=== PATIENT | male | born 1960 | race Caucasian/White ===

== ENCOUNTER 2016-08-14 04:05 | Emergency (ER) | payer BC, OTHER ==
[2016-08-14 04:18] VITALS: RESP 18
[2016-08-14] MEDS ORDERED: DICYCLOMINE 20 MG TAB PO STA (05:00)
--- NOTE | 2016-08-14 05:00 | ED ---
Abdominal Pain HPI - General Chief Complaint: Abdominal Pain Stated Complaint: abd pain Time Seen by Provider: 08/14/16 04:19 Source: patient Mode of arrival: ambulatory Limitations: no limitations - History of Present Illness Initial Comments: This patient is 56-year-old man who presents to be evaluated for abdominal cramping that has been going on since Sunday morning. He indicates the periumbilical area. He states that the pain is been pre-much constant and moderate intensity although seems to be getting worse over the past 4-5 hours. Patient notes that prior to the onset the pain on Sunday he had taken a Dulcolax as he thought he was constipated. Patient reports having a large bowel movement. There was no blood. The following morning he developed the cramping. MD Complaint: abdominal pain Onset/Timin -: hour(s) Location: periumbilical Radiation: none Migration to: no migration Severity: moderate Quality: cramping Consistency: constant Improves With: nothing Worsens With: nothing Associated Symptoms: denies other symptoms - Related Data Previous Rx's Medication Instructions Recorded Azithromycin [Zithromax Z-pack] 0 mg PO DIRECTED #6 tab 06/20/15 Fluticasone Propionate [Flonase 1 - 2 spray EA NOSTRIL DAILY 5 Days 06/20/15 Allergy Relief] Dicyclomine [Bentyl] 20 mg PO QID #15 tablet 08/14/16 Allergies Allergy/AdvReac Type Severity Reaction Status Date / Time amoxicillin Allergy Rash/Hives Verified 08/14/16 04:18 Review of Systems ROS Statement: Those systems with pertinent positive or pertinent negative responses have been documented in the HPI. ROS Other: All systems not noted in ROS Statement are negative. Constitutional: Denies: fever, chills Respiratory: Denies: cough, dyspnea Cardiovascular: Denies: chest pain, palpitations, orthopnea, edema Gastrointestinal: Reports: abdominal pain, constipation. Denies: nausea, vomiting, diarrhea, melena, hematochezia Genitourinary: Denies: dysuria, hematuria, testicular pain, testicular mass Musculoskeletal: Denies: back pain Skin: Denies: rash Neurological: Denies: headache Past Medical History Past Medical History: Diabetes Mellitus, GERD/Reflux, Myocardial Infarction ([place]) Additional Past Medical History / Comment(s): [place] 2010 History of Any Multi-Drug Resistant Organisms: None Reported Past Surgical History: Heart Catheterization With Stent, Hernia Repair, Orthopedic Surgery Additional Past Surgical History / Comment(s): royal knee, lt hand, stent placed 2011 LAD, hernia Past Psychological History: Anxiety Smoking Status: Former smoker Past Alcohol Use History: Occasional Past Drug Use History: None Reported General Exam Limitations: no limitations General appearance: alert, in no apparent distress Head exam: Present: atraumatic, normocephalic Eye exam: Present: normal appearance. Absent: scleral icterus, conjunctival injection ENT exam: Present: normal oropharynx Neck exam: Present: normal inspection, full ROM Respiratory exam: Present: normal lung sounds bilaterally. Absent: respiratory distress, wheezes, rales, rhonchi, stridor Cardiovascular Exam: Present: regular rate, normal rhythm, normal heart sounds. Absent: systolic murmur, diastolic murmur, rubs, gallop GI/Abdominal exam: Present: soft, tenderness (Left lower quadrant with mild tenderness but no rebound or guarding), normal bowel sounds. Absent: distended , guarding, rebound, rigid, mass, pulsatile mass Extremities exam: Present: normal inspection, normal capillary refill. Absent: pedal edema, calf tenderness Back exam: Present: normal inspection. Absent: CVA tenderness (R), CVA tenderness (L) Neurological exam: Present: alert Skin exam: Present: warm, dry, intact, normal color. Absent: rash Course Vital Signs 08/14/16 04:13 Temperature 97.3 F L Pulse Rate 78 Respiratory 18 Rate Blood Pressure 123/85 O2 Sat by Pulse 100 Oximetry Medical Decision Making - Medical Decision Making Patient reevaluated following studies and medication. His symptoms have resolved. I discussed with the patient signs and symptoms of hernia, obstruction, and other abdominal emergencies. At this point patient is not having any symptoms and would follow up with surgeon as outpatient. I did again emphasize to return should the symptoms recur or any new symptoms develop. Patient understands that hernia was strength relation or obstruction can be life-threatening, will return if symptoms recur. - Lab Data Result diagrams: 08/14/16 04:45 08/14/16 04:45 Lab Results 08/14/16 08/14/16 08/14/16 Range/Units 04:45 04:45 04:45 WBC 6.2 (3.8-10.6) k/uL RBC 4.69 (4.30-5.90) m/uL Hgb 14.6 (13.0-17.5) gm/dL Hct 43.4 (39.0-53.0) % MCV 92.5 (80.0-100.0) fL MCH 31.1 (25.0-35.0) pg MCHC 33.7 (31.0-37.0) g/dL RDW 13.1 (11.5-15.5) % Plt Count 225 (150-450) k/uL Neutrophils % 57 % Lymphocytes % 28 % Monocytes % 6 % Eosinophils % 5 % Basophils % 1 % Neutrophils # 3.6 (1.3-7.7) k/uL Lymphocytes # 1.7 (1.0-4.8) k/uL Monocytes # 0.4 (0-1.0) k/uL Eosinophils # 0.3 (0-0.7) k/uL Basophils # 0.1 (0-0.2) k/uL Sodium 138 (137-145) mmol/L Potassium 4.3 (3.5-5.1) mmol/L Chloride 101 (98-107) mmol/L Carbon Dioxide 29 (22-30) mmol/L Anion Gap 8 mmol/L BUN 20 (9-20) mg/dL Creatinine 1.05 (0.66-1.25) mg/dL Est GFR (MDRD) Af Amer >60 (>60 ml/min/1.73 sqM) Est GFR (MDRD) Non-Af >60 (>60 ml/min/1.73 sqM) Glucose 98 (74-99) mg/dL Calcium 10.0 (8.4-10.2) mg/dL Total Bilirubin 0.8 (0.2-1.3) mg/dL AST 18 (17-59) U/L ALT 27 (21-72) U/L Alkaline Phosphatase 50 (38-126) U/L Total Protein 5.9 L (6.3-8.2) g/dL Albumin 3.4 L (3.5-5.0) g/dL Amylase 82 (30-110) U/L Lipase 42 (23-300) U/L Urine Color Colorless Urine Appearance Clear (Clear) Urine pH 5.0 (5.0-8.0) Ur Specific [place] 1.003 (1.001-1.035) Urine Protein Negative (Negative) Urine Glucose (UA) Negative (Negative) Urine Ketones Negative (Negative) Urine Blood Negative (Negative) Urine Nitrite Negative (Negative) Urine Bilirubin Negative (Negative) Urine Urobilinogen <2.0 (<2.0) mg/dL Ur Leukocyte Esterase Negative (Negative) Disposition Clinical Impression: Abdominal pain Disposition: HOME SELF-CARE Condition: Good Instructions: Abdominal Pain (ED) Prescriptions: Dicyclomine [Bentyl] 20 mg PO QID #15 tablet Referrals: None,Stated [Primary Care Provider] - 1-2 days Ania Shields DO [Doctor of Osteopathic Medicine] - 1-2 days
[2016-08-14 05:15] LABS: Basophils # (A) 0.1 k/uL (0-0.2); Basophils % (A) 1 %; CH 30.5; CHCM 33.1; Eosinophils # (A) 0.3 k/uL (0-0.7); Eosinophils % (A) 5 %; HCT 43.4 % (39.0-53.0); HDW 2.45; HGB 14.6 gm/dL (13.0-17.5); Luc # (Auto) 0.12; Luc % (Auto) 2; Lymphocytes # (A) 1.7 k/uL (1.0-4.8); Lymphocytes % (A) 28 %; MCH 31.1 pg (25.0-35.0); MCHC 33.7 g/dL (31.0-37.0); MCV 92.5 fL (80.0-100.0); Mean Platelet Volume 7.3; Monocytes # (A) 0.4 k/uL (0-1.0); Monocytes % (A) 6 %; Neutrophils # (A) 3.6 k/uL (1.3-7.7); Neutrophils % (A) 57 %; RBC 4.69 m/uL (4.30-5.90); RDW 13.1 % (11.5-15.5); WBC 6.2 k/uL (3.8-10.6); WBC (Perox) 6.27
[2016-08-14 05:18] LABS: Appearance,Urine Clear (Clear); Bilirubin,Urine Negative (Negative); Glucose,Urine (UA) Negative (Negative); Ketones,Urine Negative (Negative); Leukocyte Esterase,Urine Negative (Negative); Nitrite,Urine Negative (Negative); Protein,Urine Negative (Negative); Specific Gravity,Urine 1.003 (1.001-1.035); UA Billing (MACRO vs. MICRO) CHEM; Urobilinogen,Urine <2.0 mg/dL (<2.0)
[2016-08-14 05:32] LABS: ALT 27 U/L (21-72); AST 18 U/L (17-59); Alkaline Phosphatase 50 U/L (38-126); Amylase 82 U/L (30-110); Anion Gap 8 mmol/L; Blood Urea Nitrogen 20 mg/dL (9-20); Carbon Dioxide 29 mmol/L (22-30); Chloride 101 mmol/L (98-107); Glucose 98 mg/dL (74-99); Non-African American GFR(MDRD) >60 (>60 ml/min/1.73 sqM); Potassium 4.3 mmol/L (3.5-5.1); Sodium 138 mmol/L (137-145); Total Bilirubin 0.8 mg/dL (0.2-1.3); Total Protein 5.9 g/dL (6.3-8.2)
--- NOTE | 2016-08-14 06:06 | CT ---
EXAM: CT Abdomen and Pelvis Without Intravenous Contrast. CLINICAL HISTORY: Abdominal cramping TECHNIQUE: Axial computed tomography images of the abdomen and pelvis without intravenous contrast. CTDI is 11.47 mGy and DLP is 580 mGy-cm This CT exam was performed using one or more of the following dose reduction techniques: automated exposure control, adjustment of the mA and/or kV according to patient size, and/or use of iterative reconstruction technique. Coronal and sagittal reformatted images were created and reviewed. COMPARISON: No relevant prior studies available. FINDINGS: Lower thorax: No acute findings. ABDOMEN: Liver: Unremarkable. Gallbladder and bile ducts: Unremarkable. No calcified stones. No ductal dilation. Pancreas: Unremarkable. No ductal dilation. Spleen: Unremarkable. No splenomegaly. Adrenals: Unremarkable. No mass. Kidneys and ureters: Mild left perinephric stranding. No obstructing stones. No hydronephrosis. Stomach and bowel: Moderate stool in colon. Small bowel located lateral to the left colon, may be a nonobstructive internal hernia. No bowel obstruction. No mucosal thickening. Appendix: No findings to suggest acute appendicitis. PELVIS: Bladder: Unremarkable. No stones. Reproductive: Unremarkable as visualized. ABDOMEN and PELVIS: Intraperitoneal space: Trace free fluid. No free air. No significant fluid collection. Bones/joints: Mild L5-S1 degenerative changes. No acute fracture. No dislocation. Soft tissues: Unremarkable. Vasculature: Unremarkable. No abdominal aortic aneurysm. Lymph nodes: Small mesenteric lymph nodes. IMPRESSION: Small bowel located lateral to the left colon, may be a nonobstructive internal hernia. Moderate stool in colon. No bowel obstruction. Minimal left perinephric stranding may be senescent, correlate for infection. No obstructive uropathy.
[2016-08-14 07:05] VITALS: BP 106/56; PULSE 58; TEMP 97.7
== END 2016-08-14 07:04 | disposition home or self-care (01) ==
LOC: EC 04:05
DX: R10.33 Periumbilical pain (principal); R10.32 Left lower quadrant pain; Z87.891 Personal history of nicotine dependence; Z88.0 Allergy status to penicillin
CPT/HCPCS: 36415; 74176; 80053; 81003; 82150; 83690; 85025; 99284

== ENCOUNTER 2016-09-17 19:41 | Emergency (ER) | payer OTHER ==
[2016-09-17] MEDS ORDERED: KETOROLAC 30 MG/ML 1 ML VIAL IVP STA (21:45)
[2016-09-17] MEDS ORDERED: ASPIRIN 325 MG TAB PO STA (21:45)
[2016-09-17 22:54] LABS: Basophils # (A) 0.1 k/uL (0-0.2); Basophils % (A) 1 %; CH 31.2; CHCM 33.1; Eosinophils # (A) 0.7 k/uL (0-0.7); Eosinophils % (A) 8 %; HCT 39.6 % (39.0-53.0); HDW 2.25; HGB 13.1 gm/dL (13.0-17.5); Luc # (Auto) 0.22; Luc % (Auto) 2; Lymphocytes % (A) 21 %; MCH 31.4 pg (25.0-35.0); MCHC 33.1 g/dL (31.0-37.0); MCV 94.8 fL (80.0-100.0); Mean Platelet Volume 7.1; Monocytes # (A) 0.6 k/uL (0-1.0); Monocytes % (A) 6 %; Neutrophils # (A) 5.8 k/uL (1.3-7.7); Neutrophils % (A) 62 %; RBC 4.17 m/uL (4.30-5.90); RDW 13.4 % (11.5-15.5); WBC 9.4 k/uL (3.8-10.6); WBC (Perox) 10.09
[2016-09-17 23:06] LABS: Anion Gap 9 mmol/L; Blood Urea Nitrogen 18 mg/dL (9-20); Calcium 9.1 mg/dL (8.4-10.2); Carbon Dioxide 23 mmol/L (22-30); Chloride 107 mmol/L (98-107); Glucose 106 mg/dL (74-99); Non-African American GFR(MDRD) >60 (>60 ml/min/1.73 sqM); Potassium 4.6 mmol/L (3.5-5.1); Sodium 139 mmol/L (137-145)
--- NOTE | 2016-09-17 23:10 | XR ---
EXAM: XR Chest, 2 Views CLINICAL HISTORY: Reason: LE swelling TECHNIQUE: Frontal and lateral views of the chest. COMPARISON: CXR 06/20/15 FINDINGS: Lungs: Unremarkable. No consolidation. Pleural space: Unremarkable. No pneumothorax. Heart: Unremarkable. No cardiomegaly. Mediastinum: Unremarkable. Bones/joints: Mild S-shaped scoliosis of the spine with multilevel degenerative changes. IMPRESSION: No acute findings.
[2016-09-17 23:26] VITALS: BP 121/75; PULSE 64; RESP 18; TEMP 98
--- NOTE | 2016-09-18 | ED ---
General Adult HPI - General Chief complaint: Extremity Problem,Nontraumatic Stated complaint: Swollen legs Source: patient Mode of arrival: ambulatory Limitations: no limitations - History of Present Illness Initial comments: 56-year-old male presented for evaluation of lower extremity edema. He states is been ongoing for the last 2 days. He did recently start a new job 3 days ago and has been more active on his feetthan usual. He denies any associated shortness breath, chest pain, fevers, chills, nausea, vomiting, dyspnea with exertion.however he does have a past medical history of coronary stenting in 2010 at admits to having a little bit of tenderness and the feet. - Related Data Home Medications Medication Instructions Recorded Confirmed D-Methorphan/Acetamin/Doxylamn 1 cap PO Q6H PRN 09/17/16 09/17/16 [Vicks Nyquil Liquicaps] Docusate [Colace] 100 mg PO DAILY PRN 09/17/16 09/17/16 Guaifen/Phenyleph/Acetaminophn 1 tab PO Q6H PRN 09/17/16 09/17/16 [Tylenol Sinus Severe Caplet] HYDROcodone/APAP 10-325MG [[place] 1 tab PO ONCE PRN 09/17/16 09/17/16 10-325] Allergies Allergy/AdvReac Type Severity Reaction Status Date / Time amoxicillin Allergy Rash/Hives Verified 09/17/16 20:52 STEROIDS Allergy "FEELS Uncoded 09/17/16 20:52 WIERD" Review of Systems ROS Statement: Those systems with pertinent positive or pertinent negative responses have been documented in the HPI. ROS Other: All systems not noted in ROS Statement are negative. Constitutional: Denies: fever, chills, weakness Eyes: Denies: eye pain, eye discharge, vision change ENT: Denies: ear pain, throat pain Respiratory: Denies: cough, dyspnea, wheezes, hemoptysis, stridor Cardiovascular: Reports: edema (bilateral lower extremity). Denies: chest pain , palpitations, dyspnea on exertion, orthopnea, syncope, paroxysmal nocturnal dyspnea Endocrine: Denies: fatigue, polydipsia, polyuria Gastrointestinal: Denies: abdominal pain, nausea, vomiting Genitourinary: Denies: urgency, dysuria, frequency Musculoskeletal: Denies: back pain, arthralgia, myalgia Skin: Denies: rash, lesions Neurological: Denies: headache, weakness, numbness, paresthesias Past Medical History Past Medical History: Diabetes Mellitus, GERD/Reflux, Myocardial Infarction ([place]) Additional Past Medical History / Comment(s): [place] 2010 History of Any Multi-Drug Resistant Organisms: None Reported Past Surgical History: Heart Catheterization With Stent, Hernia Repair, Orthopedic Surgery Additional Past Surgical History / Comment(s): royal knee, lt hand, stent placed 2010 LAD, hernia Past Psychological History: Anxiety Smoking Status: Former smoker Past Alcohol Use History: Occasional Past Drug Use History: None Reported General Exam Limitations: no limitations General appearance: alert, in no apparent distress Head exam: Present: atraumatic, normocephalic, normal inspection Eye exam: Present: normal appearance, PERRL, EOMI. Absent: scleral icterus, conjunctival injection, periorbital swelling ENT exam: Present: normal exam, mucous membranes moist Neck exam: Present: normal inspection. Absent: tenderness, meningismus, lymphadenopathy Respiratory exam: Present: normal lung sounds bilaterally. Absent: respiratory distress, wheezes, rales, rhonchi, stridor Cardiovascular Exam: Present: regular rate, normal rhythm, normal heart sounds. Absent: systolic murmur, diastolic murmur, rubs, gallop, clicks GI/Abdominal exam: Present: soft, normal bowel sounds. Absent: distended, tenderness, guarding, rebound, rigid Rectal exam: Present: deferred Extremities exam: Present: full ROM, normal capillary refill, pedal edema ( bilateral 1+ lower extremity edema with intact pulses bilaterally at the dorsalis pedis and the femoral arteries). Absent: tenderness, joint swelling, calf tenderness Back exam: Present: normal inspection Neurological exam: Present: alert, oriented X3, CN II-XII intact Psychiatric exam: Present: normal affect, normal mood Skin exam: Present: warm, dry, intact, normal color. Absent: rash Course Vital Signs 09/17/16 09/17/16 20:14 23:24 Temperature 98.2 F 98 F Pulse Rate 56 L 64 Respiratory 20 18 Rate Blood Pressure 136/78 121/75 O2 Sat by Pulse 97 100 Oximetry EKG Findings - EKG Comments: EKG Findings:: sinus rhythm with premature supraventricular complexes and a ventricular rate of 76, ANIBAL 168, QRS 90, QT/QTC 366/411. Medical Decision Making - Medical Decision Making 56-year-old male presented for evaluation bilateral lower extremity edema for the past couple days. He does state that a few days ago he started a new job and has been markedly more active on his feet with lots of walking at the new job site. On physical examination he has 1+ edema on the bilateral lower extremities but the remainder of his physical exam is benign. He has intact dorsalis pedis pulses and femoral artery pulses bilaterally. Lungs are clear to auscultation bilaterally without wheezes, rales, or rhonchi. Heart exam reveals no murmurs rubs or gallops.labs revealed no significant abnormalities and chest x-ray showed no acute process. The patient was reevaluated and stated he was feeling well. He was advised follow-up with his primary care physician but to return to this facility for symptoms should worsen or persist. The patient acknowledged an understanding of this information and agreed with this plan of care. - Lab Data Result diagrams: 09/17/16 22:40 09/17/16 22:40 Lab Results 09/17/16 09/17/16 09/17/16 Range/Units 22:40 22:40 22:40 WBC 9.4 (3.8-10.6) k/uL RBC 4.17 L (4.30-5.90) m/uL Hgb 13.1 (13.0-17.5) gm/dL Hct 39.6 (39.0-53.0) % MCV 94.8 (80.0-100.0) fL MCH 31.4 (25.0-35.0) pg MCHC 33.1 (31.0-37.0) g/dL RDW 13.4 (11.5-15.5) % Plt Count 199 (150-450) k/uL Neutrophils % 62 % Lymphocytes % 21 % Monocytes % 6 % Eosinophils % 8 % Basophils % 1 % Neutrophils # 5.8 (1.3-7.7) k/uL Lymphocytes # 2.0 (1.0-4.8) k/uL Monocytes # 0.6 (0-1.0) k/uL Eosinophils # 0.7 (0-0.7) k/uL Basophils # 0.1 (0-0.2) k/uL Sodium 139 (137-145) mmol/L Potassium 4.6 (3.5-5.1) mmol/L Chloride 107 (98-107) mmol/L Carbon Dioxide 23 (22-30) mmol/L Anion Gap 9 mmol/L BUN 18 (9-20) mg/dL Creatinine 1.20 (0.66-1.25) mg/dL Est GFR (MDRD) Af Amer >60 (>60 ml/min/1.73 sqM) Est GFR (MDRD) Non-Af >60 (>60 ml/min/1.73 sqM) Glucose 106 H (74-99) mg/dL Calcium 9.1 (8.4-10.2) mg/dL Troponin I (0.000-0.034) ng/mL NT-Pro-B Natriuret Pep 243 pg/mL 09/17/16 Range/Units 22:40 WBC (3.8-10.6) k/uL RBC (4.30-5.90) m/uL Hgb (13.0-17.5) gm/dL Hct (39.0-53.0) % MCV (80.0-100.0) fL MCH (25.0-35.0) pg MCHC (31.0-37.0) g/dL RDW (11.5-15.5) % Plt Count (150-450) k/uL Neutrophils % % Lymphocytes % % Monocytes % % Eosinophils % % Basophils % % Neutrophils # (1.3-7.7) k/uL Lymphocytes # (1.0-4.8) k/uL Monocytes # (0-1.0) k/uL Eosinophils # (0-0.7) k/uL Basophils # (0-0.2) k/uL Sodium (137-145) mmol/L Potassium (3.5-5.1) mmol/L Chloride (98-107) mmol/L Carbon Dioxide (22-30) mmol/L Anion Gap mmol/L BUN (9-20) mg/dL Creatinine (0.66-1.25) mg/dL Est GFR (MDRD) Af Amer (>60 ml/min/1.73 sqM) Est GFR (MDRD) Non-Af (>60 ml/min/1.73 sqM) Glucose (74-99) mg/dL Calcium (8.4-10.2) mg/dL Troponin I <0.012 (0.000-0.034) ng/mL NT-Pro-B Natriuret Pep pg/mL Disposition Clinical Impression: Lower extremity edema Disposition: HOME SELF-CARE Condition: Stable Instructions: Edema (ED), Leg Edema (ED) Referrals: None,Stated [Primary Care Provider] - 1-2 days Esha Chand MD [STAFF PHYSICIAN] - 1-2 days Time of Disposition: 23:59
== END 2016-09-18 00:12 | disposition home or self-care (01) ==
LOC: EC 19:41
DX: R60.0 Localized edema (principal); Z87.891 Personal history of nicotine dependence; Z88.0 Allergy status to penicillin; Z88.8 Allergy status to other drugs, medicaments and biological substances
CPT/HCPCS: 99284; 96374; 36415; 93005; 83880; 80048; 84484; 85025; 71020; J1885

== ENCOUNTER 2017-07-16 05:59 | Emergency (ER) | payer OTHER ==
[2017-07-16] MEDS ORDERED: SODIUM CHLORIDE 0.9% 1,000 ML IV STA (06:18)
[2017-07-16] MEDS ORDERED: MORPHINE SULFATE 4 MG/ML SYRINGE IV STA (06:18)
[2017-07-16] MEDS ORDERED: RX INFO: IV CONTRAST WAS GIVEN 1 EACH MISC MISCELLANE PRN (06:19)
--- NOTE | 2017-07-16 06:20 | ED ---
General Adult HPI - General Source: patient, RN notes reviewed, old records reviewed Mode of arrival: ambulatory Limitations: no limitations <Dru Lin - Last Filed: 07/16/17 06:19> <Tee Jaramillo - Last Filed: 07/16/17 08:43> - General Chief complaint: Back Pain/Injury Stated complaint: back pain Time Seen by Provider: 07/16/17 06:15 - History of Present Illness Initial comments: This is a 49-year-old male to the ER for evaluation. She is presenting for evaluation of significant right onset flank pain. Son nonsedative flank pain yesterday shows episodic progressively worsening. Patient's no prior history of similar pain history of kidney stones history of trauma. No nausea vomiting or diarrhea no fevers. Patient states pain increased overnight, increased flatus sleeping causing him to be diaphoretic and in significant pain. Patient tried Motrin with no help (Dru Lin) - Related Data Home Medications Medication Instructions Recorded Confirmed HYDROcodone/APAP 10-325MG [[place] 1 tab PO DAILY PRN 09/17/16 07/16/17 10-325] Ibuprofen [Motrin] 800 mg PO Q6H PRN 07/16/17 07/16/17 Allergies Allergy/AdvReac Type Severity Reaction Status Date / Time amoxicillin Allergy Rash/Hives Verified 07/16/17 08:19 STEROIDS Allergy "FEELS Uncoded 07/16/17 06:06 WIERD" Review of Systems ROS Other: All systems not noted in ROS Statement are negative. <Dru Lin - Last Filed: 07/16/17 06:19> ROS Other: All systems not noted in ROS Statement are negative. <Tee Jaramillo - Last Filed: 07/16/17 08:43> ROS Statement: Those systems with pertinent positive or pertinent negative responses have been documented in the HPI. Past Medical History Past Medical History: Diabetes Mellitus, GERD/Reflux, Myocardial Infarction ([place]) Additional Past Medical History / Comment(s): [place] 2010, History of Any Multi-Drug Resistant Organisms: None Reported Past Surgical History: Heart Catheterization With Stent, Hernia Repair, Orthopedic Surgery Additional Past Surgical History / Comment(s): royal knee, lt hand, stent placed 2010 LAD, hernia, Past Psychological History: Anxiety Smoking Status: Current every day smoker Past Alcohol Use History: Occasional Past Drug Use History: None Reported <Dru Lin - Last Filed: 07/16/17 06:19> General Exam Limitations: no limitations General appearance: alert, in no apparent distress Head exam: Present: atraumatic, normocephalic, normal inspection Eye exam: Present: normal appearance, PERRL, EOMI. Absent: scleral icterus, conjunctival injection, periorbital swelling ENT exam: Present: normal exam, mucous membranes moist Neck exam: Present: normal inspection. Absent: tenderness, meningismus, lymphadenopathy Respiratory exam: Present: normal lung sounds bilaterally. Absent: respiratory distress, wheezes, rales, rhonchi, stridor Cardiovascular Exam: Present: regular rate, normal rhythm, normal heart sounds. Absent: systolic murmur, diastolic murmur, rubs, gallop, clicks GI/Abdominal exam: Present: soft, normal bowel sounds. Absent: distended, tenderness, guarding, rebound, rigid Extremities exam: Present: normal inspection, full ROM, normal capillary refill. Absent: tenderness, pedal edema, joint swelling, calf tenderness Back exam: Present: normal inspection Neurological exam: Present: alert, oriented X3, CN II-XII intact Psychiatric exam: Present: normal affect, normal mood Skin exam: Present: warm, dry, intact, normal color. Absent: rash <Dru Lin - Last Filed: 07/16/17 06:19> Vital Signs 07/16/17 07/16/17 07/16/17 06:02 07:06 08:00 Temperature 97.9 F 98.3 F Pulse Rate 88 60 86 Respiratory 18 19 16 Rate Blood Pressure 113/70 124/77 115/70 O2 Sat by Pulse 100 97 98 Oximetry Medical Decision Making - Lab Data Result diagrams: 07/16/17 06:20 07/16/17 06:20 <Tee Jaramillo - Last Filed: 07/16/17 08:43> - Lab Data Lab Results 07/16/17 07/16/17 07/16/17 Range/Units 06:20 06:20 06:20 WBC 5.0 (3.8-10.6) k/uL RBC 5.00 (4.30-5.90) m/uL Hgb 15.1 (13.0-17.5) gm/dL Hct 45.2 (39.0-53.0) % MCV 90.4 (80.0-100.0) fL MCH 30.1 (25.0-35.0) pg MCHC 33.3 (31.0-37.0) g/dL RDW 13.1 (11.5-15.5) % Plt Count 175 (150-450) k/uL Neutrophils % 55 % Lymphocytes % 28 % Monocytes % 10 % Eosinophils % 4 % Basophils % 1 % Neutrophils # 2.7 (1.3-7.7) k/uL Lymphocytes # 1.4 (1.0-4.8) k/uL Monocytes # 0.5 (0-1.0) k/uL Eosinophils # 0.2 (0-0.7) k/uL Basophils # 0.1 (0-0.2) k/uL PT (9.0-12.0) sec INR (<1.2) APTT (22.0-30.0) sec Sodium 139 (137-145) mmol/L Potassium 4.4 (3.5-5.1) mmol/L Chloride 105 (98-107) mmol/L Carbon Dioxide 24 (22-30) mmol/L Anion Gap 10 mmol/L BUN 20 (9-20) mg/dL Creatinine 1.00 (0.66-1.25) mg/dL Est GFR (CKD-EPI)AfAm >90 (>60 ml/min/1.73 sqM) Est GFR (CKD-EPI)NonAf 83 (>60 ml/min/1.73 sqM) Glucose 95 (74-99) mg/dL Calcium 9.3 (8.4-10.2) mg/dL Phosphorus 3.5 (2.5-4.5) mg/dL Magnesium 1.7 (1.6-2.3) mg/dL Total Bilirubin 0.5 (0.2-1.3) mg/dL AST 24 (17-59) U/L ALT 30 (21-72) U/L Alkaline Phosphatase 81 (38-126) U/L Total Creatine Kinase 75 (55-170) U/L CK-MB (CK-2) 0.7 (0.0-2.4) ng/mL CK-MB (CK-2) Rel Index 0.9 Troponin I <0.012 (0.000-0.034) ng/mL Total Protein 6.7 (6.3-8.2) g/dL Albumin 3.8 (3.5-5.0) g/dL Urine Color Urine Appearance (Clear) Urine pH (5.0-8.0) Ur Specific [place] (1.001-1.035) Urine Protein (Negative) Urine Glucose (UA) (Negative) Urine Ketones (Negative) Urine Blood (Negative) Urine Nitrite (Negative) Urine Bilirubin (Negative) Urine Urobilinogen (<2.0) mg/dL Ur Leukocyte Esterase (Negative) Urine RBC (0-5) /hpf Urine WBC (0-5) /hpf Amorphous Sediment (None) /hpf Hyaline Casts (0-2) /lpf Urine Mucus (None) /hpf 07/16/17 07/16/17 Range/Units 06:20 06:49 WBC (3.8-10.6) k/uL RBC (4.30-5.90) m/uL Hgb (13.0-17.5) gm/dL Hct (39.0-53.0) % MCV (80.0-100.0) fL MCH (25.0-35.0) pg MCHC (31.0-37.0) g/dL RDW (11.5-15.5) % Plt Count (150-450) k/uL Neutrophils % % Lymphocytes % % Monocytes % % Eosinophils % % Basophils % % Neutrophils # (1.3-7.7) k/uL Lymphocytes # (1.0-4.8) k/uL Monocytes # (0-1.0) k/uL Eosinophils # (0-0.7) k/uL Basophils # (0-0.2) k/uL PT 9.7 (9.0-12.0) sec INR 1.0 (<1.2) APTT 23.4 (22.0-30.0) sec Sodium (137-145) mmol/L Potassium (3.5-5.1) mmol/L Chloride (98-107) mmol/L Carbon Dioxide (22-30) mmol/L Anion Gap mmol/L BUN (9-20) mg/dL Creatinine (0.66-1.25) mg/dL Est GFR (CKD-EPI)AfAm (>60 ml/min/1.73 sqM) Est GFR (CKD-EPI)NonAf (>60 ml/min/1.73 sqM) Glucose (74-99) mg/dL Calcium (8.4-10.2) mg/dL Phosphorus (2.5-4.5) mg/dL Magnesium (1.6-2.3) mg/dL Total Bilirubin (0.2-1.3) mg/dL AST (17-59) U/L ALT (21-72) U/L Alkaline Phosphatase (38-126) U/L Total Creatine Kinase (55-170) U/L CK-MB (CK-2) (0.0-2.4) ng/mL CK-MB (CK-2) Rel Index Troponin I (0.000-0.034) ng/mL Total Protein (6.3-8.2) g/dL Albumin (3.5-5.0) g/dL Urine Color Yellow Urine Appearance Cloudy (Clear) Urine pH 5.0 (5.0-8.0) Ur Specific [place] 1.024 (1.001-1.035) Urine Protein Trace H (Negative) Urine Glucose (UA) Negative (Negative) Urine Ketones Negative (Negative) Urine Blood Trace H (Negative) Urine Nitrite Negative (Negative) Urine Bilirubin Negative (Negative) Urine Urobilinogen <2.0 (<2.0) mg/dL Ur Leukocyte Esterase Negative (Negative) Urine RBC 1 (0-5) /hpf Urine WBC 3 (0-5) /hpf Amorphous Sediment Rare H (None) /hpf Hyaline Casts 5 H (0-2) /lpf Urine Mucus Occasional H (None) /hpf Disposition <Dru Lin - Last Filed: 07/16/17 06:19> Time of Disposition: 08:42 <Tee Jaramillo - Last Filed: 07/16/17 08:43> Clinical Impression: Abdominal pain Disposition: HOME SELF-CARE Condition: Good Instructions: Abdominal Pain (ED) Referrals: None,Stated [Primary Care Provider] - 1-2 days
[2017-07-16 06:44] LABS: Basophils # (A) 0.1 k/uL (0-0.2); Basophils % (A) 1 %; Eosinophils # (A) 0.2 k/uL (0-0.7); Eosinophils % (A) 4 %; HCT 45.2 % (39.0-53.0); HGB 15.1 gm/dL (13.0-17.5); Lymphocytes # (A) 1.4 k/uL (1.0-4.8); Lymphocytes % (A) 28 %; MCH 30.1 pg (25.0-35.0); MCHC 33.3 g/dL (31.0-37.0); MCV 90.4 fL (80.0-100.0); Mean Platelet Volume 7.5; Monocytes # (A) 0.5 k/uL (0-1.0); Monocytes % (A) 10 %; Neutrophils # (A) 2.7 k/uL (1.3-7.7); Neutrophils % (A) 55 %; Platelet Count 175 k/uL (150-450); RDW 13.1 % (11.5-15.5)
[2017-07-16 06:54] LABS: ALT 30 U/L (21-72); AST 24 U/L (17-59); Albumin 3.8 g/dL (3.5-5.0); Alkaline Phosphatase 81 U/L (38-126); Anion Gap 10 mmol/L; Blood Urea Nitrogen 20 mg/dL (9-20); Calcium 9.3 mg/dL (8.4-10.2); Carbon Dioxide 24 mmol/L (22-30); Chloride 105 mmol/L (98-107); Glucose 95 mg/dL (74-99); Magnesium 1.7 mg/dL (1.6-2.3); Phosphorus 3.5 mg/dL (2.5-4.5); Potassium 4.4 mmol/L (3.5-5.1); Sodium 139 mmol/L (137-145); Total Bilirubin 0.5 mg/dL (0.2-1.3); Total Protein 6.7 g/dL (6.3-8.2)
[2017-07-16 06:56] LABS: Partial Thromboplastin Time 23.4 sec (22.0-30.0); Prothrombin Time 9.7 sec (9.0-12.0)
[2017-07-16 07:23] LABS: Amorphous Sediment,Urine Rare /hpf; Appearance,Urine Cloudy (Clear); Bilirubin,Urine Negative (Negative); Blood,Urine Trace (Negative); Color,Urine Yellow; Glucose,Urine (UA) Negative (Negative); Hyaline Casts,Urine 5 /lpf (0-2); Ketones,Urine Negative (Negative); Leukocyte Esterase,Urine Negative (Negative); Mucus,Urine Occasional /hpf; Nitrite,Urine Negative (Negative); Protein,Urine Trace (Negative); RBC,Urine 1 /hpf (0-5); Specific Gravity,Urine 1.024 (1.001-1.035); Urobilinogen,Urine <2.0 mg/dL (<2.0); WBC,Urine 3 /hpf (0-5)
[2017-07-16 07:23] LABS: Creatine Kinase 75 U/L (55-170)
[2017-07-16 07:34] LABS: Creatine Kinase MB 0.7 ng/mL (0.0-2.4); Troponin I <0.012 ng/mL (0.000-0.034)
[2017-07-16] MEDS: HYDROcodone/APAP 5-325MG 1 EACH TAB PO STA ×2 (07:57→08:46)
[2017-07-16 08:02] VITALS: PULSE 86; RESP 16; TEMP 98.3
--- NOTE | 2017-07-16 08:08 | CT ---
EXAMINATION TYPE: CT abdomen pelvis w con DATE OF EXAM: 07/16/2017 COMPARISON: NONE HISTORY: Right flank pain CT DLP: 387.00 mGycm Automated exposure control for dose reduction was used. TECHNIQUE: Helical acquisition of images was performed from the lung bases through the pelvis. CONTRAST: Performed without Oral Contrast and with IV Contrast, patient injected with 100 ml mL of Omnipaque 30 0. FINDINGS: LUNG BASES: Minimal left basilar subsegmental atelectasis is seen. LIVER/GB: Mild intrahepatic biliary ductal dilatation is similar to the prior exam. Gallbladder demon strates no evidence of cholelithiasis. Common bile duct measures 6 mm, within normal limits. PANCREAS: Grossly unremarkable. SPLEEN: No significant abnormality is seen. ADRENALS: Slight thickening of the left adrenal gland is seen without focal nodularity possibly relat ed to underlying adrenal gland hyperplasia. KIDNEYS: Kidneys enhance and excrete symmetrically without hydronephrosis. FREE AIR: No free air is visualized. ADENOPATHY: No greater than 1 cm short axis lymph nodes are seen within the abdomen or pelvis. REPRODUCTIVE ORGANS: No significant abnormality is seen URINARY BLADDER: Urinary bladder displays circumferential wall thickening, possibly due to nondisten tion although correlation with urinalysis is recommended. OSSEOUS STRUCTURES: Mild multilevel degenerative changes of the spine are noted. BOWEL: No evidence of bowel obstruction. Loops of nondilated small bowel are fluid-filled. Moderate amount retained colonic stool is seen throughout. Appendix is not visualized, however there is no rig ht lower quadrant fat stranding. IMPRESSION: 1. MODERATE AMOUNT RETAINED COLONIC STOOL WITH NO EVIDENCE OF BOWEL OBSTRUCTION. COLONIC AND SMALL GLYNN WEL ILEUS IS SUSPECTED WITH NUMEROUS LOOPS OF FLUID-FILLED SMALL BOWEL. 2. CIRCUMFERENTIAL URINARY BLADDER WALL THICKENING AND COULD RELATE TO INCOMPLETE DISTENTION ALTHOUGH CORRELATION WITH URINALYSIS IS RECOMMENDED. NO EVIDENCE OF HYDRONEPHROSIS.
[2017-07-16 09:03] VITALS: BP 130/81
== END 2017-07-16 09:03 | disposition home or self-care (01) ==
LOC: EC 05:59
DX: R10.9 Unspecified abdominal pain (principal); F17.200 Nicotine dependence, unspecified, uncomplicated; Z88.0 Allergy status to penicillin; Z88.8 Allergy status to other drugs, medicaments and biological substances
CPT/HCPCS: 36415; 80053; 82550; 82553; 83735; 84100; 84484; 85025; 85610; 85730; 81001; 74177; 99284; 96374; 96361; J2270; Q9967

== ENCOUNTER 2017-12-07 01:45 | Emergency (ER) | payer OTHER ==
[2017-12-07] MEDS ORDERED: GABAPENTIN 300 MG CAP PO STA (03:02)
--- NOTE | 2017-12-07 03:02 | ED ---
General Adult HPI - General Chief complaint: Recheck/Abnormal Lab/Rx Stated complaint: Withdrawl Time Seen by Provider: 12/07/17 02:41 Source: patient Mode of arrival: ambulatory Limitations: no limitations - History of Present Illness Initial comments: Bradley Martin is a 57-year-old male with a history of opiate abuse who presents the ED today for concern of opiate withdrawal. Patient reports that he has been taking opiate medications for approximately 10-15 years. He states that he usually buys his medications off the street. He does report that a couple weeks ago he tried using Suboxone with an intention of quitting using narcotics , however that did not help. He states that he was not taking narcotics for the past couple of days but he began to feel very restless. He states that yesterday he took 2 [place] but he continues to feel as though he is withdrawing. Patient reports he is withdrawn in the past. He reports that he has restless legs and he feels like his entire body is restless. He reports feeling uncomfortable like he cannot get comfortable. He denies any chest pain, palpitations, shortness of breath or difficulty breathing. The patient states his only concern is that he needs treatment for his restless legs so that he can sleep. He states these been awake for 48 hours trying to herbal but he has been unable to. Patient requested he be given medication here in the ER as he is not certain he'll be able to borrow enough money to have a prescription filled - Related Data Previous Rx's Medication Instructions Recorded Gabapentin [Neurontin] 400 mg PO TID #15 capsule 12/07/17 Allergies Allergy/AdvReac Type Severity Reaction Status Date / Time amoxicillin Allergy Rash/Hives Verified 12/07/17 01:52 STEROIDS Allergy "FEELS Uncoded 12/07/17 01:52 WIERD" Review of Systems ROS Statement: Those systems with pertinent positive or pertinent negative responses have been documented in the HPI. ROS Other: All systems not noted in ROS Statement are negative. Past Medical History Past Medical History: Diabetes Mellitus, GERD/Reflux, Myocardial Infarction ([place]) Additional Past Medical History / Comment(s): [place] 2010, History of Any Multi-Drug Resistant Organisms: None Reported Past Surgical History: Heart Catheterization With Stent, Hernia Repair, Orthopedic Surgery Additional Past Surgical History / Comment(s): royal knee, lt hand, stent placed 2010 LAD, hernia, Past Psychological History: Anxiety Smoking Status: Current every day smoker Past Alcohol Use History: Occasional Past Drug Use History: None Reported General Exam Limitations: no limitations General appearance: alert, in no apparent distress Head exam: Present: atraumatic, normocephalic Eye exam: Present: normal appearance, PERRL ENT exam: Present: normal exam Neck exam: Present: normal inspection Respiratory exam: Present: normal lung sounds bilaterally. Absent: respiratory distress Cardiovascular Exam: Present: regular rate GI/Abdominal exam: Present: soft, normal bowel sounds. Absent: distended Rectal exam: Present: deferred Extremities exam: Present: normal inspection Back exam: Present: normal inspection Neurological exam: Present: alert, oriented X3, normal gait Psychiatric exam: Present: normal affect, normal mood Skin exam: Present: warm, dry Course Vital Signs 12/07/17 12/07/17 01:47 03:28 Temperature 98.1 F 98.0 F Pulse Rate 74 80 Respiratory 16 18 Rate Blood Pressure 131/80 122/75 O2 Sat by Pulse 99 98 Oximetry Medical Decision Making - Medical Decision Making The patient was seen and evaluated, patient with a long history of opiate abuse and withdrawal in the past. Has been trying to stop taking opiates, he developed feeling of restlessness for which she took 2 [place] without improvement. He comes to the ER today asking for treatment of the restlessness. Patient has no abdominal discomfort, diarrhea, chest pain, palpitations. His vital signs are stable. I will treat his restless legs with gabapentin. Patient is uncertain if he'll be able to fill a prescription however I will prescribe him with one At this time the patient has no further complaints Patient was advised to return to the emergency department if he has any acute worsening of his condition. Patient is aware of the of opiate withdrawal as he has been through this multiple times. Disposition Clinical Impression: Opiate withdrawal Disposition: HOME SELF-CARE Condition: Good Instructions: Opioid Withdrawal (ED) Prescriptions: Gabapentin [Neurontin] 400 mg PO TID #15 capsule Is patient prescribed a controlled substance at d/c from ED?: No Referrals: None,Stated [Primary Care Provider] - 1-2 days Time of Disposition: 03:03
[2017-12-07 03:29] VITALS: BP 122/75; PULSE 80; RESP 18; TEMP 98
== END 2017-12-07 03:29 | disposition home or self-care (01) ==
LOC: EC 01:45
DX: F11.23 Opioid dependence with withdrawal (principal); I25.2 Old myocardial infarction; G25.81 Restless legs syndrome; F17.200 Nicotine dependence, unspecified, uncomplicated; Z95.5 Presence of coronary angioplasty implant and graft; Z79.899 Other long term (current) drug therapy; Z88.0 Allergy status to penicillin; Z88.8 Allergy status to other drugs, medicaments and biological substances
CPT/HCPCS: 99283

== ENCOUNTER 2018-05-03 13:16 | Emergency (ER) | payer OTHER ==
--- NOTE | 2018-05-03 13:48 | ED ---
General Adult HPI - General Chief complaint: Arrhythmia/Palpitations Stated complaint: palpitations Source: patient Mode of arrival: ambulatory Limitations: no limitations - History of Present Illness Initial comments: Dictation was produced using [employer] dictation software. please excuse any grammatical, word or spelling errors. Chief Complaint: 57yo male presents with multiple days of shaking chills and palpitations. History of Present Illness: 17-year-old male past medical history of coronary artery disease and irregular heartbeat presents with shaking chills and palpitations for approximately 2 weeks. Patient states he doesn't have insurance and so he waited so long alcohol urgency department. Patient states the symptoms are intermittent. He does not identify any overt exacerbating or mitigating factors. He states he would last for several minutes. Sometimes he notes that his symptoms occur about frequently at night. Shaking symptoms vary between his arms, shoulder blades, leg and neck. She denies any constitutional symptoms. Denies any pain complaints. Denies any overt sick contacts. The ROS documented in this emergency department record has been reviewed and confirmed by me. Those systems with pertinent positive or negative responses have been documented in the HPI. All other systems are other negative and/or noncontributory. - Related Data Home Medications Medication Instructions Recorded Confirmed diphenhydrAMINE [Benadryl] 75 mg PO HS 05/03/18 05/03/18 Allergies Allergy/AdvReac Type Severity Reaction Status Date / Time amoxicillin Allergy Rash/Hives Verified 05/03/18 15:47 STEROIDS Allergy "FEELS Uncoded 05/03/18 13:25 WIERD" Review of Systems ROS Statement: Those systems with pertinent positive or pertinent negative responses have been documented in the HPI. ROS Other: All systems not noted in ROS Statement are negative. Past Medical History Past Medical History: Diabetes Mellitus, GERD/Reflux, Myocardial Infarction ([place]) Additional Past Medical History / Comment(s): [place] 2010, History of Any Multi-Drug Resistant Organisms: None Reported Past Surgical History: Heart Catheterization With Stent, Hernia Repair, Orthopedic Surgery Additional Past Surgical History / Comment(s): royal knee, lt hand, stent placed 2010 LAD, hernia, Past Psychological History: Anxiety Smoking Status: Current every day smoker Past Alcohol Use History: Occasional Past Drug Use History: None Reported General Exam - General Exam Comments Initial Comments: PHYSICAL EXAM: General Impression: Alert and oriented x3, not in acute distress HEENT: Normocephalic atraumatic, extra-ocular movements intact, pupils equal and reactive to light bilaterally, mucous membranes moist. Cardiovascular: Heart regular rate and rhythm, S1&S2 audible, no murmurs, rubs or gallops Chest: Lungs clear to auscultation bilaterally, no rhonchi, no wheeze, no rales Abdomen: Bowel sounds present, abdomen soft, non-tender, non-distended, no organomegaly Musculoskeletal: Pulses present and equal in all extremities, no peripheral edema Motor: Power 5/5 bilaterally, no focal deficits noted Neurological: CN II-XII grossly intact, no focal motor or sensory deficits noted Skin: Intact with no visualized rashes Psych: Normal affect and mood Limitations: no limitations Course Vital Signs 05/03/18 05/03/18 05/03/18 13:23 14:00 15:00 Temperature 97.6 F Pulse Rate 65 65 57 L Respiratory 20 16 16 Rate Blood Pressure 129/84 143/97 131/74 O2 Sat by Pulse 99 97 97 Oximetry Medical Decision Making - Medical Decision Making ED course: 57 male presents with chief complaint of 2 weeks of shaking chills intermittently. Vital signs upon arrival are within normal limits.Laboratory evaluation obtained. CBC, metabolic panel, cardiac enzymes are negative. TSH is within acceptable limits. Chest x-ray shows no acute processes. EKG does not show any findings to suggest impending arrhythmia. Chest x-ray is unremarkable. Patient was on a monitor for several hours without any cardiac events. Patient offered observation admission however he states that because he does not have insurance he rather not. Patient is told to get his insurance as soon as possible follow-up with his primary care physician. He is told that he has in arrhythmia. He is supposed to have an ablation procedure performed by electrophysiology however he has not followed up with a doctor because he has lost his insurance. Patient adamant about leaving. He is told that should he experience arrhythmia especially with syncope or symptoms of lightheadedness or chest pain to return to the emergency department. She understands the risk of leaving. He is competent and coherent to make this decision. Patient be discharged. - Lab Data Result diagrams: 05/03/18 13:40 05/03/18 13:40 Lab Results 05/03/18 05/03/18 05/03/18 Range/Units 13:40 13:40 13:40 WBC 8.8 (3.8-10.6) k/uL RBC 4.67 (4.30-5.90) m/uL Hgb 13.7 (13.0-17.5) gm/dL Hct 42.7 (39.0-53.0) % MCV 91.5 (80.0-100.0) fL MCH 29.3 (25.0-35.0) pg MCHC 32.0 (31.0-37.0) g/dL RDW 13.1 (11.5-15.5) % Plt Count 221 (150-450) k/uL Neutrophils % 46 % Lymphocytes % 39 % Monocytes % 6 % Eosinophils % 6 % Basophils % 1 % Neutrophils # 4.1 (1.3-7.7) k/uL Lymphocytes # 3.5 (1.0-4.8) k/uL Monocytes # 0.5 (0-1.0) k/uL Eosinophils # 0.5 (0-0.7) k/uL Basophils # 0.1 (0-0.2) k/uL Sodium 140 (137-145) mmol/L Potassium 4.3 (3.5-5.1) mmol/L Chloride 107 (98-107) mmol/L Carbon Dioxide 26 (22-30) mmol/L Anion Gap 7 mmol/L BUN 18 (9-20) mg/dL Creatinine 1.11 (0.66-1.25) mg/dL Est GFR (CKD-EPI)AfAm 84 (>60 ml/min/1.73 sqM) Est GFR (CKD-EPI)NonAf 73 (>60 ml/min/1.73 sqM) Glucose 87 (74-99) mg/dL Calcium 9.8 (8.4-10.2) mg/dL Magnesium 2.0 (1.6-2.3) mg/dL Total Creatine Kinase 47 L (55-170) U/L CK-MB (CK-2) <0.2 (0.0-2.4) ng/mL CK-MB (CK-2) Rel Index Troponin I <0.012 (0.000-0.034) ng/mL TSH 2.960 (0.465-4.680) mIU/L Disposition Clinical Impression: Palpitations Disposition: HOME SELF-CARE Condition: Good Instructions: Heart Palpitations (ED) Is patient prescribed a controlled substance at d/c from ED?: No Referrals: None,Stated [Primary Care Provider] - 1-2 days Time of Disposition: 16:15
[2018-05-03 13:57] LABS: Basophils # (A) 0.1 k/uL (0-0.2); Basophils % (A) 1 %; Eosinophils # (A) 0.5 k/uL (0-0.7); Eosinophils % (A) 6 %; HCT 42.7 % (39.0-53.0); HGB 13.7 gm/dL (13.0-17.5); Lymphocytes # (A) 3.5 k/uL (1.0-4.8); Lymphocytes % (A) 39 %; MCH 29.3 pg (25.0-35.0); MCV 91.5 fL (80.0-100.0); Mean Platelet Volume 7.3; Monocytes # (A) 0.5 k/uL (0-1.0); Monocytes % (A) 6 %; Neutrophils # (A) 4.1 k/uL (1.3-7.7); Neutrophils % (A) 46 %; Platelet Count 221 k/uL (150-450); RBC 4.67 m/uL (4.30-5.90); RDW 13.1 % (11.5-15.5); WBC 8.8 k/uL (3.8-10.6)
[2018-05-03 14:09] LABS: Calcium 9.8 mg/dL (8.4-10.2); Potassium 4.3 mmol/L (3.5-5.1)
--- NOTE | 2018-05-03 14:18 | XR ---
EXAMINATION TYPE: XR chest 2V DATE OF EXAM: 05/03/2018 COMPARISON: Chest x-ray September 17, 2016 HISTORY: Dysrhythmia and palpitations. TECHNIQUE: Frontal and lateral views of the chest are obtained. FINDINGS: There is chronic parenchymal change without suspicious focal air space opacity, pleural ef fusion, or pneumothorax seen. The cardiac silhouette size is within normal limits. Slight S-shaped s coliosis is redemonstrated. Overlying EKG leads are now noted. IMPRESSION: No acute cardiopulmonary process. No significant change from prior.
[2018-05-03 14:33] VITALS: RESP 16
[2018-05-03 14:56] LABS: Creatine Kinase 47 U/L (55-170)
[2018-05-03 15:07] LABS: Creatine Kinase MB <0.2 ng/mL (0.0-2.4); Troponin I <0.012 ng/mL (0.000-0.034)
[2018-05-03 16:25] VITALS: BP 122/98; PULSE 79; TEMP 98.1
== END 2018-05-03 16:24 | disposition home or self-care (01) ==
LOC: EC 13:16
DX: R00.2 Palpitations (principal); R68.83 Chills (without fever); R25.9 Unspecified abnormal involuntary movements; I25.10 Atherosclerotic heart disease of native coronary artery without angina pectoris; I25.2 Old myocardial infarction; F17.200 Nicotine dependence, unspecified, uncomplicated; Z88.0 Allergy status to penicillin; Z88.8 Allergy status to other drugs, medicaments and biological substances; Z79.899 Other long term (current) drug therapy; Z95.5 Presence of coronary angioplasty implant and graft
CPT/HCPCS: 36415; 71046; 80048; 82550; 82553; 83735; 84443; 84484; 85025; 93005; 99285

== ENCOUNTER 2018-08-30 01:37 | Emergency (ER) | payer OTHER ==
[2018-08-30 01:42] VITALS: RESP 16; TEMP 97.8
[2018-08-30 03:26] LABS: Basophils # (A) 0.1 k/uL (0-0.2); Basophils % (A) 1 %; Eosinophils # (A) 0.9 k/uL (0-0.7); Eosinophils % (A) 8 %; HCT 44.1 % (39.0-53.0); HGB 14.6 gm/dL (13.0-17.5); Lymphocytes # (A) 3.5 k/uL (1.0-4.8); Lymphocytes % (A) 32 %; MCH 30.8 pg (25.0-35.0); MCHC 33.2 g/dL (31.0-37.0); MCV 92.8 fL (80.0-100.0); Mean Platelet Volume 7.8; Monocytes # (A) 0.7 k/uL (0-1.0); Monocytes % (A) 6 %; Neutrophils # (A) 5.5 k/uL (1.3-7.7); Neutrophils % (A) 51 %; Platelet Count 246 k/uL (150-450); RBC 4.75 m/uL (4.30-5.90); RDW 14.7 % (11.5-15.5); WBC 10.8 k/uL (3.8-10.6)
[2018-08-30 03:40] LABS: Albumin 4.4 g/dL (3.5-5.0); Calcium 10.2 mg/dL (8.4-10.2); Potassium 4.1 mmol/L (3.5-5.1); Total Bilirubin 0.4 mg/dL (0.2-1.3)
[2018-08-30] MEDS ORDERED: KETOROLAC 30 MG/ML 1 ML VIAL IVP STA (03:43)
[2018-08-30] MEDS ORDERED: HYDROmorphone 0.5 MG/0.5 ML SYRINGE IVP STA ×3 (03:43→06:29)
--- NOTE | 2018-08-30 03:53 | ED ---
Abdominal Pain HPI - General Chief Complaint: Abdominal Pain Stated Complaint: Abd pain Time Seen by Provider: 08/30/18 02:09 Source: patient Mode of arrival: ambulatory Limitations: no limitations - History of Present Illness Initial Comments: This patient is a 58-year-old man who presents to be evaluated for left lower quadrant pain that is radiating to his back. The pain has been going on for almost 3 days. Patient is not able to characterize the pain. He states that it has gradually become severe. He has not noted worsening or relieving factors. The patient initially thought it may be related to constipation and had taken a laxative. He states that this has resulted in him having what he is describing as diarrhea. He states he has had a number of loose bowel movements over the course the day. He did not notice any blood or dark tarry material. MD Complaint: abdominal pain -: days(s) Location: LLQ Radiation: L flank Migration to: no migration Severity: severe Quality: other (Unable to characterize) Consistency: constant Improves With: nothing Worsens With: nothing Associated Symptoms: diarrhea - Related Data Home Medications Medication Instructions Recorded Confirmed diphenhydrAMINE [Benadryl] 75 mg PO HS 05/03/18 05/03/18 Previous Rx's Medication Instructions Recorded Ciprofloxacin HCl [Cipro] 500 mg PO Q12HR #14 tablet 08/30/18 Dicyclomine [Bentyl] 20 mg PO QID #15 tablet 08/30/18 metroNIDAZOLE [Flagyl] 500 mg PO TID #21 tab 08/30/18 Allergies Allergy/AdvReac Type Severity Reaction Status Date / Time amoxicillin Allergy Rash/Hives Verified 08/30/18 01:42 STEROIDS Allergy "FEELS Uncoded 08/30/18 01:42 WIERD" Review of Systems ROS Statement: Those systems with pertinent positive or pertinent negative responses have been documented in the HPI. ROS Other: All systems not noted in ROS Statement are negative. Constitutional: Denies: fever Respiratory: Denies: cough, dyspnea Cardiovascular: Denies: chest pain, palpitations Gastrointestinal: Reports: abdominal pain, diarrhea, constipation. Denies: nausea, vomiting, melena, hematochezia Genitourinary: Denies: dysuria, hematuria, discharge, testicular pain, testicular mass Musculoskeletal: Denies: back pain Skin: Denies: rash Neurological: Denies: headache, weakness, numbness Past Medical History Past Medical History: Diabetes Mellitus, GERD/Reflux, Myocardial Infarction ([place]) Additional Past Medical History / Comment(s): [place] 2010, History of Any Multi-Drug Resistant Organisms: None Reported Past Surgical History: Heart Catheterization With Stent, Hernia Repair, Orthopedic Surgery Additional Past Surgical History / Comment(s): royal knee, lt hand, stent placed 2010 LAD, hernia, Past Psychological History: Anxiety Smoking Status: Current every day smoker Past Alcohol Use History: Occasional Past Drug Use History: None Reported General Exam Limitations: no limitations General appearance: alert, in no apparent distress Head exam: Present: atraumatic, normocephalic Eye exam: Present: normal appearance. Absent: scleral icterus, conjunctival injection ENT exam: Present: normal oropharynx Neck exam: Present: normal inspection Respiratory exam: Present: normal lung sounds bilaterally. Absent: respiratory distress, wheezes, rales, rhonchi, stridor Cardiovascular Exam: Present: regular rate, normal rhythm, normal heart sounds. Absent: systolic murmur, diastolic murmur, rubs, gallop GI/Abdominal exam: Present: soft, normal bowel sounds. Absent: distended, tenderness, guarding, rebound, rigid, mass, pulsatile mass, hernia Extremities exam: Present: normal inspection, normal capillary refill. Absent: pedal edema, calf tenderness Back exam: Present: normal inspection. Absent: CVA tenderness (R), CVA tenderness (L), vertebral tenderness Neurological exam: Present: alert, normal gait Skin exam: Present: warm, dry, intact, normal color. Absent: rash Course Vital Signs 08/30/18 08/30/18 08/30/18 01:39 04:47 04:50 Temperature 97.8 F Pulse Rate 83 79 Respiratory 16 16 Rate Blood Pressure 117/83 123/87 O2 Sat by Pulse 98 97 98 Oximetry 08/30/18 05:00 Temperature Pulse Rate 79 Respiratory 16 Rate Blood Pressure 123/87 O2 Sat by Pulse 96 Oximetry Medical Decision Making - Lab Data Result diagrams: 08/30/18 02:35 08/30/18 02:35 Lab Results 08/30/18 08/30/18 08/30/18 Range/Units 02:35 02:35 05:25 WBC 10.8 H (3.8-10.6) k/uL RBC 4.75 (4.30-5.90) m/uL Hgb 14.6 (13.0-17.5) gm/dL Hct 44.1 (39.0-53.0) % MCV 92.8 (80.0-100.0) fL MCH 30.8 (25.0-35.0) pg MCHC 33.2 (31.0-37.0) g/dL RDW 14.7 (11.5-15.5) % Plt Count 246 (150-450) k/uL Neutrophils % 51 % Lymphocytes % 32 % Monocytes % 6 % Eosinophils % 8 % Basophils % 1 % Neutrophils # 5.5 (1.3-7.7) k/uL Lymphocytes # 3.5 (1.0-4.8) k/uL Monocytes # 0.7 (0-1.0) k/uL Eosinophils # 0.9 H (0-0.7) k/uL Basophils # 0.1 (0-0.2) k/uL Sodium 139 (137-145) mmol/L Potassium 4.1 (3.5-5.1) mmol/L Chloride 107 (98-107) mmol/L Carbon Dioxide 22 (22-30) mmol/L Anion Gap 10 mmol/L BUN 20 (9-20) mg/dL Creatinine 1.07 (0.66-1.25) mg/dL Est GFR (CKD-EPI)AfAm 88 (>60 ml/min/1.73 sqM) Est GFR (CKD-EPI)NonAf 76 (>60 ml/min/1.73 sqM) Glucose 89 (74-99) mg/dL Calcium 10.2 (8.4-10.2) mg/dL Total Bilirubin 0.4 (0.2-1.3) mg/dL AST 18 (17-59) U/L ALT 27 (21-72) U/L Alkaline Phosphatase 72 (38-126) U/L Total Protein 7.0 (6.3-8.2) g/dL Albumin 4.4 (3.5-5.0) g/dL Amylase 110 (30-110) U/L Lipase 136 (23-300) U/L Urine Color Yellow Urine Appearance Clear (Clear) Urine pH 5.0 (5.0-8.0) Ur Specific [place] 1.015 (1.001-1.035) Urine Protein Negative (Negative) Urine Glucose (UA) Negative (Negative) Urine Ketones Negative (Negative) Urine Blood Negative (Negative) Urine Nitrite Negative (Negative) Urine Bilirubin Negative (Negative) Urine Urobilinogen <2.0 (<2.0) mg/dL Ur Leukocyte Esterase Negative (Negative) Disposition Clinical Impression: Abdominal pain, Enteritis Disposition: HOME SELF-CARE Condition: Fair Instructions (If sedation given, give patient instructions): Abdominal Pain (ED) Prescriptions: Dicyclomine [Bentyl] 20 mg PO QID #15 tablet Ciprofloxacin HCl [Cipro] 500 mg PO Q12HR #14 tablet metroNIDAZOLE [Flagyl] 500 mg PO TID #21 tab Is patient prescribed a controlled substance at d/c from ED?: No Referrals: Eliane Buckley MD [Primary Care Provider] - 1-2 days
[2018-08-30 04:52] VITALS: BP 123/87; PULSE 79
--- NOTE | 2018-08-30 04:54 | CT ---
EXAM: CT Abdomen and Pelvis Without Intravenous Contrast CLINICAL HISTORY: Left lower quadrant pain TECHNIQUE: Axial computed tomography images of the abdomen and pelvis without intravenous contrast. CTDI is 5.9 mGy and DLP is 324.3 mGy-cm. This CT exam was performed using one or more of the following dose reduction techniques: automated exposure control, adjustment of the mA and/or kV according to patient size, and/or use of iterative reconstruction technique. COMPARISON: 07/16/2017 FINDINGS: Lung bases: Unremarkable. No mass. No consolidation. ABDOMEN: Liver: Unremarkable. Gallbladder and bile ducts: Unremarkable. No calcified stones. No ductal dilation. Pancreas: Unremarkable. No ductal dilation. Spleen: Unremarkable. No splenomegaly. Adrenals: Unremarkable. No mass. Kidneys and ureters: Unremarkable. No obstructing stones. No hydronephrosis. Stomach and bowel: Evaluation of the bowel mucosa is limited without contrast. There are scattered fluid distended loops of small bowel. There is fluid noted throughout the colon. No dilatation identified. No bowel obstruction. Scattered diverticulosis suggested in the sigmoid colon in the left pelvis. PELVIS: Appendix: No findings to suggest acute appendicitis. Bladder: Mild mucosal prominence of the bladder is presumed related to incomplete distention. No stones. Reproductive: Unremarkable as visualized. ABDOMEN and PELVIS: Intraperitoneal space: Unremarkable. No free air. No significant fluid collection. Bones/joints: No acute fracture. No dislocation. Soft tissues: Unremarkable. Vasculature: Atherosclerotic calcification of the abdominal aorta is stable from previous exam. No abdominal aortic aneurysm. Lymph nodes: Unremarkable. No enlarged lymph nodes. IMPRESSION: Evaluation of the bowel mucosa is limited without contrast. Scattered fluid within loops of small large bowel may be a normal variant or represent mild enterocolitis. No definitive focal bowel mucosal abnormality identified. No bowel obstruction or pneumoperitoneum.
[2018-08-30 05:46] LABS: Appearance,Urine Clear (Clear); Bilirubin,Urine Negative (Negative); Blood,Urine Negative (Negative); Color,Urine Yellow; Glucose,Urine (UA) Negative (Negative); Ketones,Urine Negative (Negative); Leukocyte Esterase,Urine Negative (Negative); Nitrite,Urine Negative (Negative); Protein,Urine Negative (Negative); Specific Gravity,Urine 1.015 (1.001-1.035); Urobilinogen,Urine <2.0 mg/dL (<2.0)
[2018-08-30] MEDS ORDERED: metroNIDAZOLE 500 MG TAB PO STA (06:29)
[2018-08-30] MEDS ORDERED: LEVOFLOXACIN 750MG-D5W PMX 750 MG in DEXTROSE/WATER 1 150ML.BAG IVPB STA (06:29)
[2018-08-30] MEDS ORDERED: LEVOFLOXACIN 750 MG TAB PO STA (06:34)
== END 2018-08-30 07:23 | disposition home or self-care (01) ==
LOC: EC 01:37
DX: K52.9 Noninfective gastroenteritis and colitis, unspecified (principal); I25.2 Old myocardial infarction; F17.200 Nicotine dependence, unspecified, uncomplicated; Z88.0 Allergy status to penicillin; Z88.8 Allergy status to other drugs, medicaments and biological substances; Z79.899 Other long term (current) drug therapy; Z95.5 Presence of coronary angioplasty implant and graft
CPT/HCPCS: 36415; 74176; 80053; 81003; 82150; 83690; 85025; 96374; 96375; 96376; 99284

== ENCOUNTER 2018-09-06 07:28 | Day surgery (SDC) | payer OTHER ==
[2018-09-02 10:53] VITALS: BMI 19.2
[~2018-09-06 07:28] MED LIST: LACTATED RINGERS 1,000 ML IV SCH
[2018-09-06 07:45] VITALS: TEMP 97.6
[2018-09-06] MEDS ORDERED: LIDOCAINE 1% 20 ML VIAL (10MG/ML) FOR IV START INTRADERMA ONE (08:05)
[2018-09-06 08:06] LABS: Glucose,Whole Blood 101 mg/dL (75-99)
[2018-09-06] MEDS ORDERED: LIDOCAINE 1% INJ 10MG/ML (20 ML MDV) ONE (08:25)
[2018-09-06] MEDS ORDERED: PROPOFOL 10 MG/ML 20 ML VIAL IV ONE (08:25)
--- NOTE | 2018-09-06 09:00 | P.PCN ---
Date of Procedure: 09/06/18 Procedure(s) Performed: Brief history: Patient is a pleasant 58-year-old white male, scheduled for an elective upper endoscopy as well as colonoscopy as a part of evaluation of epigastric pain, nausea, intermittent left lower quadrant abdominal pain, change in bowel habits for the last few months duration. Procedure performed: Esophagogastroduodenoscopy Colonoscopy Preoperative diagnosis: Epigastric pain and nausea Left lower quadrant abdominal pain and change in bowel habits Anesthesia: MAC Procedure: After informed consent was obtained from the patient was brought into the endoscopy unit and IV sedation was administered by anesthesia under continuous monitoring. Initially upper endoscopy was done. The Olympus GF 160 video endoscope was inserted inserted into the mouth and esophagus intubated without any difficulty and was gradually advanced into the stomach and duodenum and carefully examined. The bulb and second part of the duodenum appeared normal. The scope was then withdrawn into the stomach adequately insufflated with air and upon careful examination the antrum had mild gastritis and biopsies were done from this area. The dy, cardia and fundus appeared normal. The scope was then withdrawn into the esophagus. The GE junction was located at 40 cm to the incisors. Small hiatal hernia noted. The GE junction appeared regular but there was circumferential erythema with one superficial erosion consistent with LA grade B reflux esophagitis. Rest of the esophagus appeared normal. Patient tolerated the procedure well. At this time the patient continued to remain sedation. Initial digital rectal examination was normal. Olympus CF 160 video colonoscope was then inserted into the rectum and gradually advanced to the cecum without any difficulty. Careful examination was performed as the scope was gradually being withdrawn. The prep was excellent. The cecum, ascending colon, transverse colon, descending colon, sigmoid colon and rectum appeared normal. Retroflexion was performed in the rectum and no lesions were noted. Patient tolerated the procedure well. Impression: 1. Upper endoscopy revealed mild antral gastritis, LA grade B reflux esophagitis and a small hiatal hernia 2. Colonoscopy was within normal limits with no evidence of colitis or colorectal neoplasia Recommendations: Findings of this examination were discussed with the patient as well as her family. He was advised to follow with the biopsy results. He was advised to use the rest of blood was [id number] for reflux symptoms. Continue the high-fiber diet. Have a repeat screening colonoscopy in 10 years
[2018-09-06 09:25] VITALS: BP 113/72; PULSE 58; RESP 16
== END 2018-09-06 10:07 | disposition home or self-care (01) ==
LOC: ORWHC2ENDO 07:28
PROVIDERS: ATTEND Internal Medicine Gastroenterology
DX: K29.50 Unspecified chronic gastritis without bleeding (principal); K21.0 Gastro-esophageal reflux disease with esophagitis; K44.9 Diaphragmatic hernia without obstruction or gangrene; R19.4 Change in bowel habit; R10.32 Left lower quadrant pain; I25.10 Atherosclerotic heart disease of native coronary artery without angina pectoris; F17.200 Nicotine dependence, unspecified, uncomplicated; Z95.5 Presence of coronary angioplasty implant and graft; I25.2 Old myocardial infarction; E11.9 Type 2 diabetes mellitus without complications; Z79.1 Long term (current) use of non-steroidal anti-inflammatories (NSAID); Z79.82 Long term (current) use of aspirin; Z79.899 Other long term (current) drug therapy; Z88.0 Allergy status to penicillin; Z88.8 Allergy status to other drugs, medicaments and biological substances
CPT/HCPCS: 88305; 45378; 43239; J2001; J2704

== ENCOUNTER 2019-09-30 03:55 | Observation (INO) | payer OTHER ==
--- NOTE | 2019-09-30 04:42 | ED ---
Chest Pain HPI - General Chief Complaint: Chest Pain Stated Complaint: chest pain,SOB Time Seen by Provider: 09/30/19 04:40 Source: patient, RN notes reviewed, old records reviewed Mode of arrival: ambulatory Limitations: no limitations - History of Present Illness Initial Comments: THis is a 59 M to ED wi history of MA and DM, comes to ED with chest pain and palpitations, SOB and diaphoresis Happened tiwce throughout the night, improved now but continuing. Patient admist to recent Upper GI endoscopy which was normal w no intervention. Patient still doesnt feel right. MD Complaint: chest pain -: hour(s) Onset: awoke with symptoms Pain Location: substernal, left chest Pain Radiation: LUE, jaw/teeth Severity: moderate Severity scale (1-10): 5 Quality: heaviness Consistency: constant Improves With: nothing Worsens With: exertion, inspiration Anginal Symptoms: diaphoresis, dyspnea Other Symptoms: palpitations Treatments Prior to Arrival: none - Related Data Home Medications Medication Instructions Recorded Confirmed Aspirin [Adult Low Dose Aspirin EC] 81 mg PO DAILY 09/02/18 09/06/18 Atorvastatin [Lipitor] 40 mg PO HS 09/02/18 09/06/18 Bisacodyl [Dulcolax] 5 mg PO DAILY PRN 09/02/18 09/06/18 Ibuprofen/Diphenhydramine HCl 1 each PO HS PRN 09/02/18 09/06/18 [Advil Pm Liqui-Gels] Previous Rx's Medication Instructions Recorded Ciprofloxacin HCl [Cipro] 500 mg PO Q12HR #14 tablet 08/30/18 Dicyclomine [Bentyl] 20 mg PO QID #15 tablet 08/30/18 metroNIDAZOLE [Flagyl] 500 mg PO TID #21 tab 08/30/18 Allergies Allergy/AdvReac Type Severity Reaction Status Date / Time amoxicillin Allergy Rash/Hives Verified 09/30/19 04:04 STEROIDS Allergy "FEELS Uncoded 09/30/19 04:04 WIERD" Review of Systems ROS Statement: Those systems with pertinent positive or pertinent negative responses have been documented in the HPI. ROS Other: All systems not noted in ROS Statement are negative. EKG Findings - EKG Comments: EKG Findings:: EKG shows sinus bradycardia rate of 49, UT 170, QRS 90, QTC 383 Past Medical History Past Medical History: Diabetes Mellitus, GERD/Reflux, Myocardial Infarction ([place]) Additional Past Medical History / Comment(s): [place] 2010, History of Any Multi-Drug Resistant Organisms: None Reported Past Surgical History: Heart Catheterization With Stent, Hernia Repair, Orthopedic Surgery Additional Past Surgical History / Comment(s): royal knee, lt hand, stent placed 2010 LAD, hernia, Past Psychological History: Anxiety Smoking Status: Current every day smoker Past Alcohol Use History: Occasional Past Drug Use History: None Reported General Exam - General Exam Comments Initial Comments: diaphoretic Limitations: no limitations General appearance: alert, in no apparent distress, anxious Head exam: Present: atraumatic, normocephalic, normal inspection Eye exam: Present: normal appearance, PERRL, EOMI. Absent: scleral icterus, conjunctival injection, periorbital swelling ENT exam: Present: normal exam, mucous membranes moist Neck exam: Present: normal inspection. Absent: tenderness, meningismus, lymphadenopathy Respiratory exam: Present: normal lung sounds bilaterally. Absent: respiratory distress, wheezes, rales, rhonchi, stridor Cardiovascular Exam: Present: normal rhythm, bradycardia, normal heart sounds. Absent: systolic murmur, diastolic murmur, rubs, gallop, clicks GI/Abdominal exam: Present: soft, normal bowel sounds. Absent: distended, tenderness, guarding, rebound, rigid Extremities exam: Present: normal inspection, full ROM, normal capillary refill. Absent: tenderness, pedal edema, joint swelling, calf tenderness Back exam: Present: normal inspection Neurological exam: Present: alert, oriented X3, CN II-XII intact Psychiatric exam: Present: normal affect, normal mood Skin exam: Present: warm, dry, intact, normal color. Absent: rash Course Vital Signs 09/30/19 03:58 Temperature 97.8 F Pulse Rate 51 L Respiratory 20 Rate Blood Pressure 135/86 O2 Sat by Pulse 98 Oximetry Chest Pain MDM - MDM 59 male to the ED co CP, diaphoresis, history of MA, bradycardia w PVC, will admit for cardiology evlaluation Disposition Clinical Impression: Chest pain, Bradycardia, PVC (premature ventricular contraction) Disposition: ADMITTED IP TO THIS HOSP Condition: Fair Is patient prescribed a controlled substance at d/c from ED?: No Referrals: Eliane Buckley MD [Primary Care Provider] - 1-2 days
[2019-09-30 04:43] LABS: Basophils # (A) 0.1 k/uL (0-0.2); Basophils % (A) 1 %; Eosinophils # (A) 0.4 k/uL (0-0.7); Eosinophils % (A) 5 %; HCT 43.4 % (39.0-53.0); HGB 13.9 gm/dL (13.0-17.5); Lymphocytes # (A) 3.1 k/uL (1.0-4.8); Lymphocytes % (A) 36 %; MCH 30.2 pg (25.0-35.0); MCHC 31.9 g/dL (31.0-37.0); MCV 94.6 fL (80.0-100.0); Mean Platelet Volume 8.1; Monocytes # (A) 0.6 k/uL (0-1.0); Monocytes % (A) 7 %; Neutrophils % (A) 48 %; Platelet Count 217 k/uL (150-450); RBC 4.59 m/uL (4.30-5.90); RDW 12.9 % (11.5-15.5); WBC 8.4 k/uL (3.8-10.6)
[2019-09-30 04:52] LABS: INR 0.9 (<1.2); Partial Thromboplastin Time 23.7 sec (22.0-30.0); Prothrombin Time 9.6 sec (9.0-12.0)
--- NOTE | 2019-09-30 05:03 | XR ---
EXAMINATION TYPE: XR chest 2V DATE OF EXAM: 09/30/2019 COMPARISON: 05/03/2018 HISTORY: Dysrhythmia TECHNIQUE: 2 views. FINDINGS: Heart and mediastinum are normal. Lungs are clear. Diaphragm is normal. Bony thorax appears normal. Impression: Normal chest. No change.
[2019-09-30 05:04] LABS: Albumin 4.1 g/dL (3.5-5.0); Calcium 9.6 mg/dL (8.4-10.2); Magnesium 2.2 mg/dL (1.6-2.3); Potassium 4.1 mmol/L (3.5-5.1); Total Bilirubin 0.5 mg/dL (0.2-1.3); Total Protein 6.8 g/dL (6.3-8.2)
[2019-09-30] MEDS ORDERED: ASPIRIN 81 MG PO STA (06:00)
[2019-09-30] MEDS ORDERED: NITROGLYCERIN SL TABS 0.4 MG TAB SUBLINGUAL PRN (06:00)
[2019-09-30] MEDS: SODIUM CHLORIDE 0.9% 1,000 ML IV SCH ×2 (06:25→16:37)
--- NOTE | 2019-09-30 12:50 | P.CRDCN ---
History of Present Illness Consult date: 09/30/19 Chief complaint: Chest discomfort History of present illness: This is a very pleasant 59-year-old gentleman who sees Dr. Purvis in the office are regular basis with a past medical history significant for coronary artery disease and prior stenting of the LAD in 2010, unfortunately the patient continues to smoke after he stopped smoking, hypertension, and dyslipidemia, presented to the emergency room complaining of palpitation as well as chest discomfort. For the last several weeks he has been experiencing intermittent episodes of palpitation. He underwent a 24-hour Holter monitor and he is supposed to see Dr. Purvis in the office on the of this month. On further questioning the patient describes intermittent episodes of chest discomfort. He states clearly that the chest discomfort is mainly exertional. He limited his physical activities because of the discomfort. He described it as a burning sensation in the mid of the chest with radiation to the neck as well as to the jaw. Currently the patient is chest pain-free. Also he describes increasing in the shortness of breath with exertion as well and because of that he is unable to do what he used to do in the past. The EKG showed sinus rhythm without any significant ST or T-wave abnormalities. 3 sets of troponin were checked and came in to be unremarkable. He has been bradycardic through his hospital stay but he is not on any AV viet susan agents at this point. I had a long discussion with the patient regarding the next step. I advised the patient to undergo a coronary angiogram to rule out severe underlying coronary artery disease giving the nature of his symptoms which are exertional and consistent of chest discomfort as well as shortness of breath. 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 Meanwhile I will obtain an echocardiogram was Doppler to establish LV function. Past Medical History Past Medical History: Diabetes Mellitus, GERD/Reflux, Myocardial Infarction ([place]) Additional Past Medical History / Comment(s): [place] 2010, History of Any Multi-Drug Resistant Organisms: None Reported Past Surgical History: Heart Catheterization With Stent, Hernia Repair, Orthopedic Surgery Additional Past Surgical History / Comment(s): royal knee, lt hand, stent placed 2010 LAD, hernia, Past Psychological History: Anxiety Smoking Status: Current every day smoker Past Alcohol Use History: Occasional Past Drug Use History: None Reported Medications and Allergies Home Medications Medication Instructions Recorded Confirmed Type Ciprofloxacin HCl [Cipro] 500 mg PO Q12HR #14 tablet 08/30/18 09/06/18 Rx Dicyclomine [Bentyl] 20 mg PO QID #15 tablet 08/30/18 09/06/18 Rx metroNIDAZOLE [Flagyl] 500 mg PO TID #21 tab 08/30/18 09/06/18 Rx Aspirin [Adult Low Dose Aspirin EC] 81 mg PO DAILY 09/02/18 09/06/18 History Atorvastatin [Lipitor] 40 mg PO HS 09/02/18 09/06/18 History Bisacodyl [Dulcolax] 5 mg PO DAILY PRN 09/02/18 09/06/18 History Ibuprofen/Diphenhydramine HCl 1 each PO HS PRN 09/02/18 09/06/18 History [Advil Pm Liqui-Gels] Allergies Allergy/AdvReac Type Severity Reaction Status Date / Time amoxicillin Allergy Rash/Hives Verified 09/30/19 04:04 STEROIDS Allergy "FEELS Uncoded 09/30/19 04:04 WIERD" Physical Exam Vitals: Vital Signs Temp Pulse Pulse Resp BP Pulse Ox 09/30/19 12:03 58 L 16 99/68 98 09/30/19 08:39 50 L 09/30/19 07:40 61 16 104/70 97 09/30/19 06:00 46 L 18 114/68 99 09/30/19 03:58 97.8 F 51 L 20 135/86 98 Intake and Output 09/29/19 09/30/19 09/30/19 22:59 06:59 14:59 Other: Voiding Method Toilet Weight 74.843 kg - Constitutional General appearance: no acute distress - Respiratory Respiratory: bilateral: CTA - Cardiovascular Rhythm: regular Heart sounds: normal: S1, S2 Results 09/30/19 04:13 09/30/19 04:13 Cardiac Enzymes 09/30/19 09/30/19 09/30/19 Range/Units 04:13 04:13 09:56 AST 27 (17-59) U/L Troponin I <0.012 <0.012 (0.000-0.034) ng/mL Coagulation 09/30/19 Range/Units 04:13 PT 9.6 (9.0-12.0) sec APTT 23.7 (22.0-30.0) sec CBC 09/30/19 Range/Units 04:13 WBC 8.4 (3.8-10.6) k/uL RBC 4.59 (4.30-5.90) m/uL Hgb 13.9 (13.0-17.5) gm/dL Hct 43.4 (39.0-53.0) % Plt Count 217 (150-450) k/uL Comprehensive Metabolic Panel 09/30/19 Range/Units 04:13 Sodium 134 L (137-145) mmol/L Potassium 4.1 (3.5-5.1) mmol/L Chloride 102 (98-107) mmol/L Carbon Dioxide 24 (22-30) mmol/L BUN 24 H (9-20) mg/dL Creatinine 1.22 (0.66-1.25) mg/dL Glucose 101 H (74-99) mg/dL Calcium 9.6 (8.4-10.2) mg/dL AST 27 (17-59) U/L ALT 17 (4-49) U/L Alkaline Phosphatase 72 (38-126) U/L Total Protein 6.8 (6.3-8.2) g/dL Albumin 4.1 (3.5-5.0) g/dL Current Medications Generic Name Dose Route Start Last Admin Trade Name Freq PRN Reason Stop Dose Admin Aspirin 325 mg 10/01/19 09:00 Aspirin PO DAILY MARIANO Sodium Chloride 1,000 mls @ 100 mls/hr 09/30/19 06:00 09/30/19 06:25 Saline 0.9% IV 100 mls/hr .Q10H MARIANO Administration Nitroglycerin 0.4 mg 09/30/19 06:00 Nitrostat SUBLINGUAL Q5M PRN Chest Pain Intake and Output 09/29/19 09/30/19 09/30/19 22:59 06:59 14:59 Other: Voiding Method Toilet Weight 74.843 kg 09/30/19 04:13 09/30/19 04:13 Assessment and Plan Assessment: Assessment Exertional chest discomfort and shortness of breath Coronary artery disease and prior stenting of the LAD Significant history of smoking Hypertension Dyslipidemia Plan Continue the current medical regimen I advised the patient to undergo coronary angiogram Obtain an echocardiogram was Doppler Follow-up with the patient Thank you for allowing us participate in his care
[2019-09-30] MEDS: HYDROcodone/APAP 5-325MG 1 EACH TAB PO PRN ×2 (16:10→21:51)
[2019-10-01 04:25] LABS: Cholesterol 178 mg/dL (<200); HDL Cholesterol 62 mg/dL (40-60); LDL Cholesterol,Calculated 98 mg/dL (0-99); Triglycerides 89 mg/dL (<150)
[2019-10-01] MEDS: SODIUM CHLORIDE 0.9% 1,000 ML IV SCH (04:30)
[2019-10-01 05:37] VITALS: TEMP 97.2
[2019-10-01] MEDS ORDERED: SODIUM CHLORIDE 0.9% 1,000 ML in EMPTY BAG 1 BAG IV ONE (08:46)
[2019-10-01] MEDS ORDERED: ATORVASTATIN 80 MG TAB PO STA (08:46)
[2019-10-01] MEDS ORDERED: ASPIRIN 325 MG TAB PO STA (08:46)
[2019-10-01] MEDS: HYDROcodone/APAP 5-325MG 1 EACH TAB PO PRN (08:50)
[2019-10-01] MEDS ORDERED: ASPIRIN 325 MG TAB PO SCH (09:00)
[2019-10-01 11:50] VITALS: BP 123/83; PULSE 62; RESP 16
--- NOTE | 2019-10-01 11:59 | P.PN ---
Subjective Progress Note Date: 10/01/19 Principal diagnosis: This is a pleasant 59-year-old gentleman was coronary artery disease and prior stenting of the LAD as well as hypertension, dyslipidemia, smoking, who was admi tted to the hospital with chest discomfort and ruled out for acute coronary event. His chest discomfort is quite concerning for angina. I advised the patient to undergo coronary angiogram. The patient is going to have coronary angiogram later on today by Dr. Purvis. Currently he is chest pain-free. Objective - Vital Signs Vital signs: Vital Signs Temp 97.2 F L 10/01/19 04:00 Pulse 62 10/01/19 08:00 Resp 16 10/01/19 08:00 BP 123/83 10/01/19 08:00 Pulse Ox 96 10/01/19 04:00 Intake & Output 09/30/19 10/01/19 10/01/19 18:59 06:59 18:59 Intake Total 900 Balance 900 Weight 74.843 kg Intake: Oral 900 Other: Voiding Method Toilet Toilet Toilet # Voids 1 - Constitutional General appearance: Present: no acute distress - Respiratory Respiratory: bilateral: CTA - Labs CBC & Chem 7: 09/30/19 04:13 09/30/19 04:13 Labs: Abnormal Lab Results - Last 24 Hours (Table) 09/30/19 Range/Units 04:13 HDL Cholesterol 62 H (40-60) mg/dL Assessment and Plan Assessment: Assessment Exertional chest discomfort and shortness of breath Coronary artery disease and prior stenting of the LAD Significant history of smoking Hypertension Dyslipidemia Plan Continue the current medical regimen I advised the patient to undergo coronary angiogram Follow-up with the patient
--- NOTE | 2019-10-01 12:11 | P.HPIM ---
History of Present Illness H&P Date: 09/30/19 59-year-old pleasant man in the with known history of coronary artery disease with stent LAD in 2010 came in with complaints of chest pain predominantly in the left shoulder area radiating from the neck. Constant pain moderate severity. Patient denied any fever chills patient chest pain is nonpleuritic not associated with food patient doesn't have any acute ST-T wave changes. Sets of troponins are negative. Patient is also complaining of shortness of breath. Patient is undergoing echocardiogram cardiac eval and the patient is recommending cardiac catheterization because of the exertional nature of the chest pain. Patient continues to smoke 5 cigarettes per day Review of Systems REVIEW OF SYSTEMS: CONSTITUTIONAL: No fever, no malaise, no fatigue. HEENT: No recent visual problems or hearing problems. Denied any sore throat. CARDIOVASCULAR: No orthopnea, PND, no palpitations, no syncope. PULMONARY: No shortness of breath, no cough, no hemoptysis. GASTROINTESTINAL: No diarrhea, no nausea, no vomiting, no abdominal pain. NEUROLOGICAL: No headaches, no weakness, no numbness. HEMATOLOGICAL: Denies any bleeding or petechiae. GENITOURINARY: Denies any burning micturition, frequency, or urgency. MUSCULOSKELETAL/RHEUMATOLOGICAL: Denies any joint pain, swelling, or any muscle pain. ENDOCRINE: Denies any polyuria or polydipsia. The rest of the 14-point review of systems is negative. Past Medical History Past Medical History: Diabetes Mellitus, GERD/Reflux, Myocardial Infarction ([place]) Additional Past Medical History / Comment(s): [place] 2010, Last Myocardial Infarction Date:: 2010 History of Any Multi-Drug Resistant Organisms: None Reported Past Surgical History: Heart Catheterization With Stent, Hernia Repair, Orthopedic Surgery Additional Past Surgical History / Comment(s): royal knee, lt hand, stent placed 2010 LAD, hernia, Date of Last Stent Placement:: 2010 Past Psychological History: Anxiety Smoking Status: Current every day smoker Past Alcohol Use History: Occasional Past Drug Use History: None Reported Medications and Allergies Home Medications Medication Instructions Recorded Confirmed Type Aspirin [Adult Low Dose Aspirin EC] 81 mg PO DAILY 09/02/18 09/30/19 History Metoprolol Tartrate [Lopressor] 25 mg PO DAILY 09/30/19 09/30/19 History Allergies Allergy/AdvReac Type Severity Reaction Status Date / Time amoxicillin Allergy Rash/Hives Verified 09/30/19 04:04 STEROIDS Allergy "FEELS Uncoded 09/30/19 04:04 WIERD" Physical Exam Vitals: Vital Signs Temp Pulse Pulse Resp BP BP Pulse Ox 10/01/19 08:00 62 16 123/83 10/01/19 04:00 97.2 F L 56 L 18 109/69 96 10/01/19 00:00 97.8 F 65 18 106/65 92 L 09/30/19 20:00 98.1 F 61 18 126/81 98 09/30/19 19:14 98.2 F 66 18 105/75 97 09/30/19 15:45 65 18 94/76 96 09/30/19 15:40 60 18 108/68 96 Intake and Output 09/30/19 10/01/19 10/01/19 22:59 06:59 14:59 Intake Total 900 0 Balance 900 0 Intake: Oral 900 0 Other: Voiding Method Toilet Toilet Toilet # Voids 1 1 Weight 74.843 kg PHYSICAL EXAMINATION: GENERAL: The patient is alert and oriented x3, not in any acute distress. Well developed, well nourished. HEENT: Pupils are round and equally reacting to light. EOMI. No scleral icterus. No conjunctival pallor. Normocephalic, atraumatic. No pharyngeal erythema. No thyromegaly. CARDIOVASCULAR: S1 and S2 present. No murmurs, rubs, or gallops. PULMONARY: Chest is clear to auscultation, no wheezing or crackles. ABDOMEN: Soft, nontender, nondistended, normoactive bowel sounds. No palpable organomegaly. MUSCULOSKELETAL: No joint swelling or deformity. EXTREMITIES: No cyanosis, clubbing, or pedal edema. NEUROLOGICAL: Gross neurological examination did not reveal any focal deficits. SKIN: No rashes. Results CBC & Chem 7: 09/30/19 04:13 09/30/19 04:13 Labs: Abnormal Lab Results - Last 24 Hours (Table) 09/30/19 Range/Units 04:13 HDL Cholesterol 62 H (40-60) mg/dL Assessment and Plan Plan: -Chest pain possibly of unstable angina, other differential being musculoskeletal chest pain from degenerative cervical spine disease.. Continue with the status beta susan and antiplatelet therapy. Is presently on IV heparin cardiac exam will be obtained looking for any wall motion abnormalities --Coronary artery disease with stents to LAD in the past -Continued nicotine use: Counseling was provided -Hypertension -Dyslipidemia For above-mentioned chronic medical problems patient will be resumed on appropriate medications
[2019-10-01] MEDS ORDERED: HEPARIN SODIUM 1,000 UN/ML (10ML VL) ONE (12:29)
[2019-10-01] MEDS ORDERED: LIDOCAINE 1% INJ 10MG/ML (20 ML MDV) ONE (12:29)
[2019-10-01] MEDS ORDERED: VERAPAMIL 2.5 MG/ML 2 ML AMP ONE (12:29)
--- NOTE | 2019-10-01 12:47 | P.DS ---
Providers Date of admission: 09/30/19 06:01 Attending physician: Lalitha De Santiago Consults: 09/30/19 06:00 Consult Physician Urgent Consulting Provider: Mac Carmen Consult Reason/Comments: ML [place] Do you want consulting provider notified?: Yes Primary care physician: Eliane Buckley [facility] Course: Patient is admitted for chest pain will undergo cardiac catheterization today if there is no significant abnormality patient probably will be discharged today. There is a possibility this can be musculoskeletal pain from degenerative cervical vertebral disease. Patient pain in the neck area and chest area significantly better can use excessive and Tylenol for neck pain. Patient's LDL is LDL is 98 PHYSICAL EXAMINATION: GENERAL: The patient is alert and oriented x3, not in any acute distress. Well developed, well nourished. HEENT: Pupils are round and equally reacting to light. EOMI. No scleral icterus. No conjunctival pallor. Normocephalic, atraumatic. No pharyngeal erythema. No thyromegaly. CARDIOVASCULAR: S1 and S2 present. No murmurs, rubs, or gallops. PULMONARY: Chest is clear to auscultation, no wheezing or crackles. ABDOMEN: Soft, nontender, nondistended, normoactive bowel sounds. No palpable organomegaly. MUSCULOSKELETAL: No joint swelling or deformity. EXTREMITIES: No cyanosis, clubbing, or pedal edema. NEUROLOGICAL: Gross neurological examination did not reveal any focal deficits. SKIN: No rashes. refer to my dictation of H&P from yesterday for the details of hospitalization course and other medical problems that were addressed during this hospitalization Patient Condition at Discharge: Fair Plan - Discharge Summary Discharge Rx Participant: Yes New Discharge Prescriptions: Continue Aspirin [Adult Low Dose Aspirin EC] 81 mg PO DAILY Metoprolol Tartrate [Lopressor] 25 mg PO DAILY Discharge Medication List Aspirin [Adult Low Dose Aspirin EC] 81 mg PO DAILY 09/02/18 [History] Metoprolol Tartrate [Lopressor] 25 mg PO DAILY 09/30/19 [History] Follow up Appointment(s)/Referral(s): Evans Purvis MD [STAFF PHYSICIAN] - 1 Week Eliane Buckley MD [Primary Care Provider] - 3 Days
--- NOTE | 2019-10-01 21:02 | ECHOF ---
Referral Reason:SOB MEASUREMENTS -------- HEIGHT: 188.0 cm WEIGHT: 74.8 kg BP: 109/69 IVSd: 1.3 cm (0.6 - 1.1) LVIDd: 3.7 cm (3.9 - 5.3) LVPWd: 1.4 cm (0.6 - 1.1) IVSs: 1.7 cm LVIDs: 2.5 cm LVPWs: 1.8 cm RVIDd: 3.5 cm (< 3.3) LAESV Index (A-L): 42.85 ml/m Ao Diam: 3.3 cm (2.0 - 3.7) AV Cusp: 2.1 cm (1.5 - 2.6) EPSS: 0.7 cm MV E Krystian: 0.71 m/s MV DecT: 240 ms MV A Krystian: 0.66 m/s MV E/A Ratio: 1.08 AR PHT: 706 ms RAP: 5.00 mmHg RVSP: 22.15 mmHg MV EF SLOPE: 88.91 mm/s (70 - 150) MV EXCURSION: 18.74 mm (> 18.000) FINDINGS -------- Sinus rhythm with extra systolic beats. This was a technically adequate study. The left ventricular size is normal. There is mild concentric left ventricular hypertrophy. Overa ll left ventricular systolic function is mildly impaired with, an EF between 45 - 50 %. Mid anteros eptal LV wall motion is hypokinetic. Apical septum LV wall motion is hypokinetic. The right ventricle is mildly enlarged. LA is moderately dilated 34-39 ml/m2 The right atrium is mildly enlarged. Interatrial and interventricular septum intact. The aortic valve is trileaflet and appears structurally normal. There is mild aortic regurgitation. There is no evidence of aortic stenosis. Mild mitral regurgitation is present. Mild tricuspid regurgitation present. There is no evidence of pulmonary hypertension. The right v entricular systolic pressure, as measured by Doppler, is 22.15mmHg. There is no pulmonic regurgitation present. The aortic root size is normal. The inferior vena cava is mildly dilated. There is no pericardial effusion. CONCLUSIONS -------- 1. Sinus rhythm with extra systolic beats. 2. This was a technically adequate study. 3. The left ventricular size is normal. 4. There is mild concentric left ventricular hypertrophy. 5. Overall left ventricular systolic function is mildly impaired with, an EF between 45 - 50 %. 6. Mid anteroseptal LV wall motion is hypokinetic. 7. Apical septum LV wall motion is hypokinetic. 8. The right ventricle is mildly enlarged. 9. LA is moderately dilated 34-39 ml/m2 10. The right atrium is mildly enlarged. 11. Interatrial and interventricular septum intact. 12. The aortic valve is trileaflet and appears structurally normal. 13. There is mild aortic regurgitation. 14. There is no evidence of aortic stenosis. 15. Mild mitral regurgitation is present. 16. Mild tricuspid regurgitation present. 17. There is no evidence of pulmonary hypertension. 18. The right ventricular systolic pressure, as measured by Doppler, is 22.15mmHg. 19. There is no pulmonic regurgitation present. 20. The aortic root size is normal. 21. The inferior vena cava is mildly dilated. 22. There is no pericardial effusion. WAFER MOUNTER: Osiris Crum RDCS
[2019-10-02] MEDS ORDERED: ASPIRIN 325 MG TAB PO SCH (09:00)
== END 2019-10-01 13:34 | disposition home or self-care (01) ==
LOC: EC 03:55 → 3SCARD 06:01
PROVIDERS: ADMIT Hospitalist; ATTEND Hospitalist
DX: R07.89 Other chest pain (principal); Z03.818 Encounter for observation for suspected exposure to other biological agents ruled out; R00.2 Palpitations; R61 Generalized hyperhidrosis; E11.9 Type 2 diabetes mellitus without complications; E78.5 Hyperlipidemia, unspecified; F17.210 Nicotine dependence, cigarettes, uncomplicated; F41.9 Anxiety disorder, unspecified; I10 Essential (primary) hypertension; I25.10 Atherosclerotic heart disease of native coronary artery without angina pectoris; I25.2 Old myocardial infarction; I49.3 Ventricular premature depolarization; Z79.82 Long term (current) use of aspirin; Z79.899 Other long term (current) drug therapy; Z95.5 Presence of coronary angioplasty implant and graft; Z88.1 Allergy status to other antibiotic agents; Z88.8 Allergy status to other drugs, medicaments and biological substances; M54.2 Cervicalgia
CPT/HCPCS: 96360; 96361; 99285; 36415; 93005; 93306; 80061; 80053; 83690; 83735; 84484; 85025; 85610; 85730; 87635; 71046; G0378 ×2

== ENCOUNTER → 2019-10-27 | Day surgery (SDC) | payer OTHER ==
[2019-10-24 09:32] VITALS: BMI 19.8
[~2019-10-27] MED LIST changes: +ACETAMINOPHEN TAB 325 MG TAB ONE; +ACETAMINOPHEN TAB 325 MG TAB PO PRN; +ALPRAZolam 0.25 MG TAB PO PRN; +ALPRAZolam 0.5 MG TAB PO PRN; +ASPIRIN 325 MG TAB PO STA; +ATORVASTATIN 80 MG TAB PO STA; +BIVALIRUDIN 250 MG in SODIUM CHLORIDE 0.9% 39.5 ML IV ONE; +BIVALIRUDIN BOLUS 250 MG/50 ML IV ONE; +HEPARIN SODIUM 1,000 UN/ML (10ML VL) ONE; +IOPAMIDOL-370 100ML BTL INJ ONE; -LACTATED RINGERS 1,000 ML IV SCH; +LIDOCAINE 1% INJ 10MG/ML (20 ML MDV) ONE; +LIDOCAINE 1% INJ 10MG/ML (20 ML MDV) SQ ONE; +NITROGLYCERIN 1000MCG/10ML SYRINGE INTRACORON ONE; +NITROGLYCERIN SL TABS 0.4 MG TAB SUBLINGUAL PRN; +SODIUM CHLORIDE 0.9% 1,000 ML IV SCH; +SODIUM CHLORIDE 0.9% 1,000 ML in EMPTY BAG 1 BAG IV ONE; +TICAGRELOR 90 MG TAB ONE; +TICAGRELOR 90 MG TAB PO ONE; +VERAPAMIL 2.5 MG/ML 2 ML AMP ONE; +VERAPAMIL SYRINGE (5 MG/10 ML) INTRAARTER ONE
[2019-10-27 09:43] VITALS: RESP 18; TEMP 98.1
[2019-10-27] MEDS: MIDAZOLAM 2 MG/2 ML VIAL IV ONE ×2 (11:15→11:20)
--- NOTE | 2019-10-27 14:08 | US ---
EXAMINATION TYPE: US carotid duplex BILAT DATE OF EXAM: 10/27/2019 COMPARISON: NONE CLINICAL HISTORY: LEFT SIDED NUMBNESS. EXAM MEASUREMENTS: RIGHT: Peak Systolic Velocity (PSV) cm/sec ----- Right CCA: 76.5 ----- Right ICA: 108.3 ----- Right ECA: 61.6 ICA/CCA ratio: 1.4 RIGHT: End Diastole cm/sec ----- Right CCA: 16.0 ----- Right ICA: 44.8 ----- Right ECA: 9.2 LEFT: Peak Systolic Velocity (PSV) cm/sec ----- Left CCA: 63.3 ----- Left ICA: 74.7 ----- Left ECA: 55.6 ICA/CCA ratio: 1.2 LEFT: End Diastole cm/sec ----- Left CCA: 13.6 ----- Left ICA: 25.0 ----- Left ECA: 8.1 VERTEBRALS (direction of flow): Right Vertebral: Antegrade Left Vertebral: Antegrade Rhythm: Normal Minimal atherosclerotic changes with no significant velocity elevations. Intimal thickening is noted on the right. Mild intimal thickening is also present on the left. IMPRESSION: Atheromatous plaquing in intimal thickening without suspicious flow-limiting stenosis. Criteria for Assigning % of Stenosis / Diameter reduction (Estimation based on the indirect measurements of the internal carotid artery velocities (ICA PSV). 1. Normal (no stenosis)=ICA PSV < 125 cm/s: ratio < 2.0: ICA EDV<40 cm/s. 2. Less than 50% stenosis=ICA PSV < 125 cm/s: ratio < 2.0: ICA EDV<40 cm/s. 3. 50 to 69% stenosis=ICA PSV of 125 to 230 cm/s: ration 2.0 ? 4.0: ICA EDV 40-100 cm/s. 4. Greater than 70% stenosis to near occlusion= ICA PSV > 230 cm/s: ratio > 4.0: ICA EDV > 100 cm/s. 5. Near occlusion= ICA PSV velocities may be low or undetectable: variable ratio and ICA EDV. 6. Total occlusion=unable to detect flow.
--- NOTE | 2019-10-27 14:59 | CC ---
CARDIAC CATHETERIZATION REPORT CARDIAC CATHETERIZATION AND PCI REPORT: DATE OF SERVICE: 10/27/2019. PROCEDURE PERFORMED: 1. Left heart catheterization and coronary angiography. 2. PTCA and stenting of an in-stent restenosis in the mid LAD with 2 drug-eluting stents. PERFORMED BY: Dr. Anjelica Purvis. SEDATION: Moderate conscious sedation time was 50 minutes. Patient was administered Versed. Oxygen saturation, hemodynamics and EKG were monitored closely. CLINICAL INFORMATION: Mr. Bradley Martin is a 59-year-old gentleman with a history of previous anterior VA in 2010 and he had a stenting of a totally occluded mid LAD performed with 2 bare metal stents. These were 3.0 proximal and 2.75 distal stents. He has been having symptoms of chest pain, recent hospitalization, and also ventricular ectopy. He was advised cardiac catheterization after due discussion regarding risks, benefits, and options. PROCEDURE NOTE: Under local anesthesia and strict aseptic precautions, a 6-Indian introducer was placed in the right radial artery. Using a JL3.5 and JR4 catheters, I performed coronary angiography and the same right catheter was used to check LV pressures. LV gram was not performed. Following the procedure, I performed stenting of the mid LAD in-stent restenosis with 2 drug-eluting stents. Subsequently, the sheath was taken out and a TR band applied as per protocol. The saturation the fingers of the right hand of 98%. The patient received Angiomax bolus and infusion as per protocol and he also received 180 mg of Brilinta orally. CARDIAC CATHETERIZATION FINDINGS: The left ventricular end-diastolic pressure was about 5 mmHg without any gradient across aortic valve. CORONARY ANGIOGRAPHY FINDINGS: RIGHT CORONARY ARTERY: This is a large dominant vessel which has mild to moderate diffuse disease and calcification. In the proximal 1/3 at the junction of the proximal and middle 1/3, there is an about a 40% narrowing of the RCA and then the caliber improves and distally bifurcates into a large PDA, smaller PLV. The mid RCA therefore has a 40% eccentric lesion. Before the lesion there is an area of ectasia. However, this is not significant and the flow is very brisk. There is moderate calcification. LEFT MAIN CORONARY ARTERY: This is a short, patent disease-free vessel that bifurcates into LAD and circumflex. LEFT ANTERIOR DESCENDING CORONARY ARTERY: Good caliber vessel extends along the anterior wall, gives off a diagonal branch very proximally and then there is a long stented segment noted within the stented segment. Before and after the septal branch there is an area of narrowing which ranges anywhere from 60-85 percent. After this area of narrowing, especially after the septal branch, there is 85% to 90% narrowing. After this area of disease within the stent, the caliber of the vessel improves and it runs all the way to the apex supplying a sizable amount of myocardium. LEFT POSTERIOR CIRCUMFLEX CORONARY ARTERY: Technically this is a nondominant vessel that in the midportion there is an eccentric tortuous segment and the lesion is about 60-70 percent. It is definitely more than what was there in 2011 and then it gives off an obtuse marginal branch and then runs the distally as a groove branch and a small posterolateral branch. Mid circumflex is calcified eccentric, has a lesion of about 70% at least. Left ventriculogram was not performed. FINAL IMPRESSION: This patient has a right dominant system with a 40% mid RCA stenosis, in-stent restenosis of the LAD with about 85% stenosis in a focal area, but the entire area is diffusely diseased. Circumflex has a 60% to 70% mid lesion. Filling pressures are low. No gradient across aortic valve. RECOMMENDATIONS: I recommended PCI of in-stent restenosis in the LAD and proceeded to perform this in the same setting. PCI PROCEDURE DETAILS: A JL3.5 guide catheter was used to cannulate the left coronary artery. A whisper straight wire was used to cross the lesion. Without predilatation, a 23 mm long 3.0 caliber Xience stent was deployed in the distal aspect of the stent. This was within the previous stent. The proximal area was addressed with a 3.25 caliber 12 mm Xience stent. Excellent angiographic result was achieved. The entire segment was then dilated with a 3.25 caliber, 15 mm NC Trek balloon. The patient had chest pain and precordial ST elevation with inflations. Excellent angiographic result without complication was achieved. The flow was brisk. Results were discussed with the patient and family. I expect that he will be discharged later on today if he remains stable and I will see him in the office on Sunday. He will be on dual antiplatelet therapy, 80 mg of Lipitor and metoprolol tartrate will be 12.5 mg every morning, aspirin 81 mg daily, Brilinta 90 mg b.i.d. MMODL / IJN: [id number] /
[2019-10-27 17:48] VITALS: BP 108/62; PULSE 62
== END ==
LOC: CATHCVL 09:15
PROVIDERS: ATTEND Internal Medicine Interventional Cardiology
DX: T82.855A Stenosis of coronary artery stent, initial encounter (principal); I25.110 Atherosclerotic heart disease of native coronary artery with unstable angina pectoris; I10 Essential (primary) hypertension; I49.3 Ventricular premature depolarization; E78.2 Mixed hyperlipidemia; F17.210 Nicotine dependence, cigarettes, uncomplicated; Z95.5 Presence of coronary angioplasty implant and graft; Z88.0 Allergy status to penicillin; Z82.49 Family history of ischemic heart disease and other diseases of the circulatory system
CPT/HCPCS: 93458; 93880; C9600; C1769 ×2; C1887; C1725; C1874; C1894; J2250; J2001; J0583; J1644; Q9967

== ENCOUNTER → 2019-10-28 | Outpatient (CLI) | payer OTHER ==
[2019-10-28 13:49] LABS: HCT 40.5 % (39.0-53.0); HGB 12.9 gm/dL (13.0-17.5); MCH 30.8 pg (25.0-35.0); MCV 96.4 fL (80.0-100.0); Mean Platelet Volume 8.4; Platelet Count 206 k/uL (150-450)
[2019-10-28 22:06] LABS: African American GFR (CKD) 94.4 (60.0-200.0); Anion Gap 6.4 mmol/L (4.00-12.00); Calcium 8.9 mg/dL (8.7-10.3); Carbon Dioxide 23.6 mmol/L (21.6-31.8); Non-African American GFR(CKD) 81.4 (60.0-200.0); Potassium 4.7 mmol/L (3.5-5.5)
== END | disposition home or self-care (01) ==
LOC: LABWHC1 12:24
PROVIDERS: ATTEND Internal Medicine Interventional Cardiology
DX: Z98.890 Other specified postprocedural states (principal)
CPT/HCPCS: 36415; 80048; 85027

== ENCOUNTER → 2020-06-03 | Outpatient (CLI) | payer OTHER | END | disposition home or self-care (01) | LOC: LABWHC1 13:40 | PROVIDERS: ATTEND Family Medicine | DX: Z20.822 Contact with and (suspected) exposure to COVID-19 (principal) | CPT/HCPCS: U0003; C9803; U0005 ==